=== PATIENT | female | born 1945 | race Caucasian/White ===

== ENCOUNTER 2017-02-02 06:15 | Day surgery (SDC) | payer MEDICARE ==
[2017-01-28 14:47] VITALS: BMI 39.4
[~2017-02-02 06:15] MED LIST: ALPRAZolam 0.25 MG TAB PO PRN; ALPRAZolam 0.5 MG TAB PO PRN; ASPIRIN 325 MG TAB PO STA; ATORVASTATIN 80 MG TAB PO STA; NITROGLYCERIN SL TABS 0.4 MG TAB SUBLINGUAL PRN; SODIUM CHLORIDE 0.9% 1,000 ML in EMPTY BAG 1 BAG IV ONE
[2017-02-02] MEDS ORDERED: IV FLUID CONTINUATION 950 ML IV ONE (07:17)
[2017-02-02 07:19] VITALS: PULSE 60; TEMP 97.8
[2017-02-02] MEDS ORDERED: LIDOCAINE 2% INJ 20 MG/ML (20 ML MDV) ONE (07:31)
[2017-02-02] MEDS ORDERED: MIDAZOLAM 2 MG/2 ML VIAL ONE (07:32)
[2017-02-02] MEDS ORDERED: diphenhydrAMINE 50 MG/ML 1 ML VIAL ONE (07:32)
[2017-02-02] MEDS ORDERED: VERAPAMIL 2.5 MG/ML 2 ML AMP ONE (07:32)
[2017-02-02 07:33] LABS: Glucose,Whole Blood 129 mg/dL (75-99)
[2017-02-02] MEDS ORDERED: HEPARIN SODIUM 1,000 UNIT/ML VIAL ONE (07:39)
[2017-02-02] MEDS ORDERED: diphenhydrAMINE 50 MG/ML 1 ML VIAL IVP ONE (07:41)
[2017-02-02] MEDS ORDERED: MIDAZOLAM 2 MG/2 ML VIAL IV ONE (07:43)
[2017-02-02] MEDS ORDERED: LIDOCAINE 2% INJ 20 MG/ML SQ ONE (07:47)
[2017-02-02] MEDS: VERAPAMIL SYRINGE (5 MG/10 ML) INTRAARTER ONE ×2 (07:51→08:04)
[2017-02-02] MEDS ORDERED: IOHEXOL 350 MG/ML 125ML BOTTLE INJ ONE (08:04)
[2017-02-02] MEDS ORDERED: RX INFO: IV CONTRAST WAS GIVEN 1 EACH MISC MISCELLANE PRN (08:09)
[2017-02-02] MEDS ORDERED: SODIUM CHLORIDE 0.9% 1,000 ML IV SCH (08:15)
[2017-02-02 08:35] LABS: Glucose,Whole Blood 128 mg/dL (75-99)
--- NOTE | 2017-02-02 10:41 | CC ---
DATE OF SERVICE: 02/02/2017. Performing physician: Hernán Dubon car rental clerk. PROCEDURE PERFORMED: 1. Selective right and left coronary angiogram. 2. Left heart catheterization. INDICATION: This is a pleasant 71-year-old female patient who is known to have coronary artery disease and prior stenting of the diagonal branch of the LAD was experiencing symptoms of angina. She was brought today to undergo a heart catheterization. Approach: Right radial artery. COMPLICATIONS: None. Level of sedation: Moderate with a sedation length of 20 minutes. PROCEDURE DESCRIPTION: After obtaining informed consent, the patient was brought to the cardiac engineer geophysical laboratory. Right radial artery was cannulated using micropuncture technique. The micropuncture wire passed easily, then I placed 6 Fijian sheath in the right radial artery. Subsequently, I gave the patient 2 mg of Verapamil IA and 3000 units of heparin IV. After that, I did selective right and left coronary angiogram using JR4 and JL 3.5 catheters. Left heart catheterization was performed using JR4 catheter which flipped into the left ventricle. I did pull back after that. The procedure was completed without any complication. SELECTIVE CORONARY ANGIOGRAM: 1. The right coronary artery is a large-caliber vessel and it is a dominant vessel. The right coronary artery is 100% occluded in the midportion on short segment and fills by collateral from the left coronary system. 2. The left main is angiographically normal. It bifurcates into the left circumflex and left anterior descending artery. 3. The left circumflex is a large-caliber vessel. It is a nondominant vessel. The proximal circumflex is angiographically normal and gives rises into the first and second diagonal branches; both are angiographically normally. The mid circumflex is normal and the circ distally is normal as well. 4. The left anterior descending artery: Proximal LAD appeared to be angiographically normal and gives rise into a large diagonal branch, which is stented, and the stent is patent. The mid LAD is angiographically normal. The LAD distally appeared to be normal, but tortuous. HEMODYNAMICS: The left ventricular end-diastolic pressure was 12 mmHg and no gradient was identified across the aortic valve. CONCLUSION: 1. Chronic total occlusion of the right coronary artery on short segment. 2. Normal left circumflex coronary artery. 3. Patent stent in the diagonal branch of the LAD. 4. Normal left anterior descending artery. POSTPROCEDURE MANAGEMENT: I will schedule the patient to have a stress test as an outpatient. If she has a moderate to large-caliber ischemia in the inferior wall, I will consider proceeding PCI of the RCA and try to go through that ( ).
[2017-02-02 11:22] VITALS: RESP 18
[2017-02-02 12:44] LABS: Glucose,Whole Blood 110 mg/dL (75-99)
[2017-02-02 13:33] VITALS: BP 118/62
== END 2017-02-02 13:30 | disposition home or self-care (01) ==
LOC: CATHCVL 06:15
PROVIDERS: ATTEND Internal Medicine Interventional Cardiology
DX: I25.110 Atherosclerotic heart disease of native coronary artery with unstable angina pectoris (principal); I25.82 Chronic total occlusion of coronary artery; Z95.5 Presence of coronary angioplasty implant and graft; E78.5 Hyperlipidemia, unspecified; I10 Essential (primary) hypertension; E78.00 Pure hypercholesterolemia, unspecified; E11.9 Type 2 diabetes mellitus without complications; Z79.84 Long term (current) use of oral hypoglycemic drugs; Z79.02 Long term (current) use of antithrombotics/antiplatelets; Z79.82 Long term (current) use of aspirin; Z79.899 Other long term (current) drug therapy; Z87.891 Personal history of nicotine dependence
CPT/HCPCS: 93458; 99152; C1894; J2001; J2250; J1200; J1644; Q9967

== ENCOUNTER → 2017-02-08 | Outpatient (CLI) | payer MEDICARE ==
--- NOTE | 2017-02-08 14:13 | US ---
EXAMINATION TYPE: US thyroid st tissue head/neck DATE OF EXAM: 02/08/2017 COMPARISON: NONE CLINICAL HISTORY: E0.1 thyroid nodule. GLAND SIZE: *Large thick neck, thyroid situated inferior. Right Lobe: 4.0 x 1.9 x 1.5 cm Overall Parenchyma: grossly heterogenous Left Lobe: 4.1 x 1.9 x 1.2 cm Overall Parenchyma: grosslyheterogeneous Isthmus Thickness: 0.4 cm NODULES RIGHT: # of nodules measured on right: 0 LEFT: # of nodules measured on left: 0 ISTHMUS: # of nodules measured in the isthmus: 0 Bilateral neck scanned, no evidence of lymphadenopathy. Thyroid gland is markedly heterogeneous in appearance and normal in size, no worrisome focal solid or cystic nodules are identified IMPRESSION: Thyroid gland is normal in size but markedly heterogeneous in appearance, no discrete suspicious grea ter than 1 cm solid or cystic nodules are identified.
== END | disposition home or self-care (01) ==
LOC: RADUSWWP 13:19
PROVIDERS: ATTEND Surgery
DX: E04.1 Nontoxic single thyroid nodule (principal)
CPT/HCPCS: 76536

== ENCOUNTER → 2017-02-12 | Outpatient (CLI) | payer MEDICARE | END | disposition home or self-care (01) | LOC: LABWHC1 09:07 | PROVIDERS: ATTEND Surgery | DX: E04.1 Nontoxic single thyroid nodule (principal) | CPT/HCPCS: 36415; 84439; 84443 ==

== ENCOUNTER 2020-06-04 14:09 | Observation (INO) | payer MEDICARE ==
--- NOTE | 2020-06-04 14:15 | ED ---
Chest Pain HPI - General Stated Complaint: Chest Pain Time Seen by Provider: 06/04/20 14:09 Source: patient, RN notes reviewed - History of Present Illness Initial Comments: This is a 75-year-old female with a family history of heart disease but no personal heart disease history she has of a history of hypertension and hypothyroidism type 2 diabetes who presents with complaints of chest pain it's been intermittent over last couple days with associated shortness of breath he states when she has a pressure [id number] in severity lasting about 20 minutes associated with shortness of breath. She's had no palpitations but was found in her doctor's office today to have A. fib blood per paramedics it appears the PACs and PVCs. Currently is pain-free she took 2 aspirins this morning. No current symptoms MD Complaint: chest pain, other - Related Data Home Medications Medication Instructions Recorded Confirmed Fish Oil/Fat No.8/Hrb Comb.137 1,200 mg PO DAILY 02/01/14 06/04/20 [Barling 3-6-9 1,200 mg Softgel] Lisinopril-Hctz 20-12.5 mg 1 tab PO BID 02/01/14 06/04/20 [Zestoretic 20-12.5] Omeprazole [PriLOSEC] 20 mg PO DAILY 02/01/14 06/04/20 gemfibroziL [Lopid] 600 mg PO BID 02/01/14 06/04/20 Levothyroxine Sodium [Synthroid] 150 mcg PO DAILY 02/02/14 06/04/20 Glimepiride [Amaryl] 2 mg PO AC-BRKFST 06/04/20 06/04/20 Metoprolol Tartrate [Lopressor] 50 mg PO DAILY 06/04/20 06/04/20 Semaglutide [Ozempic] 0.25 mg SQ MO 06/04/20 06/04/20 metFORMIN HCL 1,000 mg PO BID 06/04/20 06/04/20 Previous Rx's Medication Instructions Recorded Clopidogrel [Plavix] 75 mg PO DAILY #30 tab 02/03/14 Nitroglycerin Sl Tabs [Nitrostat] 0.4 mg SUBLINGUAL Q5M PRN #25 tab 02/03/14 Allergies Allergy/AdvReac Type Severity Reaction Status Date / Time surgical tape AdvReac Unknown Uncoded 06/04/20 15:03 Review of Systems ROS Statement: Those systems with pertinent positive or pertinent negative responses have been documented in the HPI. ROS Other: All systems not noted in ROS Statement are negative. EKG Findings - EKG Results: EKG: interpreted by KARYN, sinus rhythm (Sinus rhythm with PACs rate 79. Interval was 70 QRS duration 88 QT since QTC 392/[address]-T wave changes) Past Medical History Past Medical History: Chest Pain / Angina, CVA/TIA, Diabetes Mellitus, GERD/Reflux, Hyperlipidemia, Hypertension, Osteoarthritis (OA), Thyroid Disorder Additional Past Medical History / Comment(s): TIA 20 yrs. ago-no residual effects, c/o chest pressure, SOB w/exertion History of Any Multi-Drug Resistant Organisms: None Reported Past Surgical History: Breast Surgery, Heart Catheterization With Stent, Orthopedic Surgery Additional Past Surgical History / Comment(s): LT SHOULDER, RT BREAST BENIGN LUMP REMOVED Past Anesthesia/Blood Transfusion Reactions: No Reported Reaction Date of Last Stent Placement:: 2013 Past Psychological History: Anxiety Past Alcohol Use History: Occasional Additional Past Alcohol Use History / Comment(s): quit smoking 22 yrs. smoked 1ppd for 30 yrs. Past Drug Use History: None Reported - Past Family History Father Family Medical History: Deep Vein Thrombosis (DVT) General Exam - General Exam Comments Initial Comments: This is a well-developed well-nourished awake alert oriented 3 female General appearance: alert, in no apparent distress Head exam: Present: atraumatic, normocephalic, normal inspection Eye exam: Present: normal appearance, PERRL, EOMI. Absent: scleral icterus, conjunctival injection, periorbital swelling ENT exam: Present: normal exam, mucous membranes moist Neck exam: Present: normal inspection. Absent: tenderness, meningismus, lymph adenopathy Respiratory exam: Present: normal lung sounds bilaterally. Absent: respiratory distress, wheezes, rales, rhonchi, stridor Cardiovascular Exam: Present: regular rate, normal rhythm, normal heart sounds. Absent: systolic murmur, diastolic murmur, rubs, gallop, clicks GI/Abdominal exam: Present: soft, normal bowel sounds. Absent: distended, tenderness, guarding, rebound, rigid Extremities exam: Present: normal inspection, full ROM, normal capillary refill. Absent: tenderness, pedal edema, joint swelling, calf tenderness Back exam: Present: normal inspection Neurological exam: Present: alert, oriented X3, CN II-XII intact Psychiatric exam: Present: normal affect, normal mood Skin exam: Present: warm, dry, intact, normal color. Absent: rash Course Vital Signs 06/04/20 06/04/20 06/04/20 14:25 15:05 16:00 Temperature 98.2 F Pulse Rate 81 78 77 Respiratory 18 16 18 Rate Blood Pressure 173/74 138/81 137/53 O2 Sat by Pulse 99 95 96 Oximetry - Reevaluation(s) Reevaluation #1: 06/04/20 16:44 Patient did have elevated d-dimer. CAT scan of the chest was done no evidence of pulmonary emboli. She did note that there is a family history of emboli in the family /relatives Chest Pain MDM - MDM Imaging reviewed no evidence of acute findings. I did discuss the case with the patient and her and with Dr. Sutherland who did see the patient in emergency department patient be admitted for evaluation of chest pain cardiology will be consulted Critical Care Time Critical Care Time: Yes Total Critical Care Time: 35 Critical Care Time: Critical care time includes initial presentation with history physical labs x- rays multiple re-evaluations patient discussion the patient family regarding findings discussion with the admitting physician documentation the above Disposition Clinical Impression: Chest pain, Unstable angina pectoris Disposition: ADMITTED IP TO THIS [facility] Condition: Fair Referrals: Nimisha House MD [Primary Care Provider] - 1-2 days
[2020-06-04 14:50] LABS: Basophils # (A) 0.1 k/uL (0-0.2); Basophils % (A) 1 %; Eosinophils # (A) 0.7 k/uL (0-0.7); Eosinophils % (A) 8 %; HCT 41.9 % (34.0-46.0); HGB 13.8 gm/dL (11.4-16.0); Lymphocytes # (A) 2.1 k/uL (1.0-4.8); Lymphocytes % (A) 25 %; MCH 29.5 pg (25.0-35.0); MCV 89.4 fL (80.0-100.0); Mean Platelet Volume 7.9; Monocytes # (A) 0.6 k/uL (0-1.0); Monocytes % (A) 7 %; Neutrophils # (A) 4.6 k/uL (1.3-7.7); Neutrophils % (A) 55 %; Platelet Count 346 k/uL (150-450); RBC 4.68 m/uL (3.80-5.40); RDW 12.2 % (11.5-15.5); WBC 8.3 k/uL (3.8-10.6)
[2020-06-04 15:08] LABS: ALT 18 U/L (4-34); AST 22 U/L (14-36); African American GFR (CKD) >90 (>60 ml/min/1.73 sqM); Albumin 4.4 g/dL (3.5-5.0); Alkaline Phosphatase 71 U/L (38-126); Anion Gap 11 mmol/L; Blood Urea Nitrogen 25 mg/dL (7-17); Carbon Dioxide 26 mmol/L (22-30); Chloride 101 mmol/L (98-107); Creatine Kinase 30 U/L (30-135); Glucose 160 mg/dL (74-99); Magnesium 1.6 mg/dL (1.6-2.3); Non-African American GFR(CKD) 90 (>60 ml/min/1.73 sqM); Potassium 4.2 mmol/L (3.5-5.1); Sodium 138 mmol/L (137-145); Total Bilirubin 0.3 mg/dL (0.2-1.3); Total Protein 7.4 g/dL (6.3-8.2)
[2020-06-04 15:11] LABS: INR 0.9 (<1.2); Prothrombin Time 9.4 sec (9.0-12.0)
[2020-06-04 15:19] LABS: D-Dimer 2.08 mg/L FEU (<0.60)
[2020-06-04 15:20] LABS: Partial Thromboplastin Time 21.5 sec (22.0-30.0)
--- NOTE | 2020-06-04 15:39 | XR ---
EXAMINATION TYPE: XR chest 2V DATE OF EXAM: 06/04/2020 CLINICAL HISTORY: Chest pain TECHNIQUE: Frontal and lateral views of the chest are obtained. COMPARISON: Chest radiograph 04/14/2017 FINDINGS: The cardiomediastinal silhouette is within normal limits for size. Pulmonary vasculature i s normal. There is no focal air space opacity, pleural effusion, or pneumothorax seen. Degenerative c hanges of the spine. IMPRESSION: No acute cardiopulmonary process.
--- NOTE | 2020-06-04 16:12 | CT ---
EXAMINATION TYPE: CT angio chest DATE OF EXAM: 06/04/2020 3:57 PM COMPARISON: 06/04/2020 chest radiograph HISTORY: Chest heaviness. CT DLP: 650.1 mGycm Automated exposure control for dose reduction was used. CONTRAST: CTA scan of the thorax is performed with IV Contrast, patient injected with 100 mL of Isovue 370, pul monary embolism protocol. MIP images are created and reviewed. FINDINGS: LUNGS: The lungs are grossly clear, there is no concerning parenchymal mass or nodule identified. T here is no pleural effusion or pneumothorax seen. The tracheobronchial tree is patent. MEDIASTINUM: There is satisfactory enhancement of the pulmonary artery and its branches, there is no CT evidence for pulmonary embolism. Prominent 1.0 cm left mediastinal lymph node. No hilar or axillar y lymphadenopathy. Cardiac size normal. No pericardial effusion is seen. No thoracic aortic aneurysm . OTHER: Degenerative changes of the spine. Normal adrenal glands. IMPRESSION: 1. NO PULMONARY EMBOLISM. 2. NO THORACIC AORTIC ANEURYSM.
[2020-06-04] MEDS ORDERED: HEPARIN SODIUM,PORCINE 5,000 UNIT/ML 1 ML VIAL IV ONE (16:46)
[2020-06-04] MEDS ORDERED: NITROGLYCERIN SL TABS 0.4 MG TAB SUBLINGUAL PRN (16:46)
[2020-06-04] MEDS: SODIUM CHLORIDE 0.9% 1,000 ML IV SCH (17:58)
[2020-06-04] MEDS: HEPARIN SOD,PORK IN 0.45% NACL 25,000 UNIT in 0.45% NACL 1 250ML.BAG IV SCH (17:58)
[2020-06-04] MEDS: NITROGLYCERIN OINT 1 INCH/GM PACKET TOPICAL SCH (19:15)
[2020-06-04] MEDS ORDERED: HYDROmorphone 0.5 MG/0.5 ML SYRINGE IVP PRN (19:22)
[2020-06-04] MEDS: PANTOPRAZOLE 40 MG/10 ML VIAL IVP SCH (19:51)
--- NOTE | 2020-06-04 20:24 | HP ---
HISTORY AND PHYSICAL DATE OF SERVICE: 06/04/2020 CHIEF COMPLAINT: Chest pain. HISTORY OF PRESENT ILLNESS: This 75-year-old woman with a past medical history of multiple medical problems, including chest pain, history of CVA, TIA, diabetes mellitus, GERD, hypertension, hyperlipidemia, DJD, hypothyroidism, history of TIA, being followed by Dr. House in the outpatient setting, was complaining of severe chest pain in the anterior part of the chest today. The patient woke up from sleep this morning. The pain lasted about 15 minutes, moderate intensity, which was a pressure type of pain felt in the anterior part. The pain was intermittent over the last couple of days. Some shortness of breath. The patient came to [facility] and was admitted for further evaluation and treatment. The patient was found to have atrial fibrillation in the doctor's office with some PACs and PVCs also. The evaluation in the ER showed D-dimer was elevated to 2.08, but a CT angio did not show any evidence of aortic aneurysm or an acute pulmonary embolism. Patient was admitted for further evaluation. Glucose was 160. Initial troponins are negative. NT-Pro-BNP is only 80. There is no history of any fever, rigor or chills. No history of headache, loss of consciousness, seizures at this time. PAST MEDICAL HISTORY: History of CVA, TIA, diabetes mellitus, GERD, hypertension, hyperlipidemia, history of DJD, hypothyroidism, TIA. HOME MEDICATIONS: 1. Metformin 1000 mg p.o. b.i.d. 2. Lopid 600 mg p.o. b.i.d. 3. Ozempic 0.25 mg. 4. Prilosec. 5. Nitroglycerin. 6. Metoprolol. 7. Lisinopril/hydrochlorothiazide. 8. Synthroid. 9. Amaryl. 10.Fish oil. 11.Plavix. ALLERGIES: SURGICAL TAPE. FAMILY HISTORY: History of DVT in the family. SOCIAL HISTORY: Previous history of smoking. No history of alcohol intake. REVIEW OF SYSTEMS: ENT: No diminished hearing. No diminished vision. CARDIOVASCULAR SYSTEM: As mentioned earlier. RESPIRATORY SYSTEM: As mentioned earlier. GI: As mentioned earlier. : No dysuria or retention. NERVOUS SYSTEM: No numbness, weakness. ALLERGY/IMMUNOLOGY: No asthma, hayfever. MUSCULOSKELETAL: As mentioned earlier. HEMATOLOGY/ONCOLOGY: No history of anemia. ENDOCRINE: Hypothyroidism. CONSTITUTIONAL: As mentioned earlier. DERMATOLOGY: Negative. RHEUMATOLOGY: Negative. PSYCHIATRY: As mentioned earlier. PHYSICAL EXAMINATION: Patient alert and oriented x3. Pulse is 79, blood pressure 127/60, respiration 18, temperature normal, pulse ox 98% on room air. HEENT: Conjunctivae normal. Oral mucosa moist. NECK: No jugular venous distention. No carotid bruit. No lymph node enlargement. CARDIOVASCULAR SYSTEM: S1, S2 muffled. No S3. No S4. RESPIRATORY SYSTEM: Breath sounds diminished at the bases. No rhonchi. No crackles. ABDOMEN: Soft, obese, non-tender. No mass palpable. LEGS: No edema. No swelling. NERVOUS SYSTEM: Higher functions as mentioned earlier. Moves all 4 limbs. No focal motor or sensory deficit. LYMPHATICS: No lymph node palpable in neck, axillae or groin. SKIN: No ulcer, rash, bleeding. JOINTS: No active deforming arthropathy. LABS/IMAGING: CBC within normal limits. D-dimer is 2.08. Sodium 138, potassium 4.2. BUN is 25, glucose 160. Troponin less than 0.012. EKG shows normal sinus rhythm with some PACs. Chest x-ray, which was personally reviewed by me, showed no cardiorespiratory illness. CTA, which was again personally reviewed, showed no evidence of any pulmonary embolism. ASSESSMENT: 1. Chest pain for evaluation; possible unstable angina. 2. Elevated D-dimer of undetermined etiology. 3. Rule out paroxysmal atrial fibrillation. 4. Diabetes mellitus, type 2. 5. PACs and PVCs. 6. History of cerebrovascular accident, transient ischemic attack. 7. Gastroesophageal reflux disease. 8. Hypertension. 9. Hyperlipidemia. 10.Degenerative joint disease. 11.History of hypothyroidism. 12.History of coronary artery disease, stent. 13.History of right breast benign lump. 14.Anxiety. 15.Remote history of nicotine dependence. 16.Obesity with body mass index of 38.6. 17.FULL CODE. RECOMMENDATIONS AND DISCUSSION: In this 75-year-old woman with a past history of multiple medical problems, at this time I recommend continuing the current medications, continue symptomatic treatment. The initial EKG did not show an acute abnormality. I would obtain a cardiology consultation. Otherwise, acute coronary syndrome protocol. I would give Protonix. Resume the home medication. Monitor blood sugars closely. Prognosis guarded because of multiple complex medical issues. Further recommendations to follow. A copy of this dictation is being forwarded to Dr. House, who is the primary physician. I would also recommend COVID-19 testing as well as some septic workup. MMODL / IJN: [id number] /
[2020-06-04 20:34] LABS: Appearance,Urine Clear (Clear); Bilirubin,Urine Negative (Negative); Blood,Urine Negative (Negative); Color,Urine Yellow; Glucose,Urine (UA) Negative (Negative); Ketones,Urine Negative (Negative); Leukocyte Esterase,Urine Small (Negative); Mucus,Urine Rare /hpf; Nitrite,Urine Negative (Negative); PH, Urine 6.5 (5.0-8.0); Protein,Urine Negative (Negative); RBC,Urine 1 /hpf (0-5); Specific Gravity,Urine 1.017 (1.001-1.035); Squamous Epithelial Cell,Urine 1 /hpf (0-4); Urobilinogen,Urine <2.0 mg/dL (<2.0); WBC,Urine 3 /hpf (0-5)
[2020-06-04] MEDS: metFORMIN 500 MG TAB PO SCH (21:01)
[2020-06-04 21:02] LABS: Glucose,Whole Blood 128 mg/dL (75-99)
[2020-06-04] MEDS: FENOFIBRATE 160 MG TAB PO SCH (21:10)
[2020-06-04] MEDS: LISINOPRIL-HCTZ 20-12.5 MG 1 EACH TAB PO SCH (21:27)
[2020-06-04] MEDS: INSULIN ASPART (NovoLOG) 100 UNIT/ML VIAL SQ SCH (21:28)
[2020-06-04 22:47] LABS: C Reactive Protein 5.4 mg/L (<10.0)
[2020-06-05] MEDS: NITROGLYCERIN OINT 1 INCH/GM PACKET TOPICAL SCH ×4 (00:39→16:50)
[2020-06-05] MEDS: LEVOTHYROXINE 75 MCG TAB PO SCH (06:14)
[2020-06-05] MEDS: INSULIN ASPART (NovoLOG) 100 UNIT/ML VIAL SQ SCH ×4 (06:14→20:43)
[2020-06-05] MEDS: GLIMEPIRIDE 2 MG TAB PO SCH (06:14)
[2020-06-05 06:43] LABS: Glucose,Whole Blood 152 mg/dL (75-99)
[2020-06-05] MEDS ORDERED: PANTOPRAZOLE 40 MG TABLET PO SCH (07:30)
[2020-06-05] MEDS: metFORMIN 500 MG TAB PO SCH (08:05)
[2020-06-05] MEDS: PANTOPRAZOLE 40 MG/10 ML VIAL IVP SCH (08:25)
[2020-06-05] MEDS: LISINOPRIL-HCTZ 20-12.5 MG 1 EACH TAB PO SCH ×2 (08:25→20:05)
[2020-06-05] MEDS: METOPROLOL TARTRATE 50 MG TAB PO SCH (08:25)
[2020-06-05] MEDS: CLOPIDOGREL 75 MG TAB PO SCH (08:25)
[2020-06-05] MEDS ORDERED: ASPIRIN 325 MG TAB PO SCH (09:00)
[2020-06-05] MEDS ORDERED: [UNRECOGNIZED DRUG - REMARK] PO SCH (09:00)
[2020-06-05 09:48] LABS: African American GFR (CKD) >90 (>60 ml/min/1.73 sqM); Anion Gap 10 mmol/L; Basophils # (A) 0.1 k/uL (0-0.2); Basophils % (A) 1 %; Blood Urea Nitrogen 20 mg/dL (7-17); Calcium 9.6 mg/dL (8.4-10.2); Carbon Dioxide 27 mmol/L (22-30); Chloride 100 mmol/L (98-107); Cholesterol 198 mg/dL (<200); Eosinophils # (A) 0.6 k/uL (0-0.7); Eosinophils % (A) 8 %; Glucose 157 mg/dL (74-99); HCT 41.8 % (34.0-46.0); HDL Cholesterol 28 mg/dL (40-60); HGB 13.7 gm/dL (11.4-16.0); Lymphocytes # (A) 2.1 k/uL (1.0-4.8); Lymphocytes % (A) 29 %; MCH 29.7 pg (25.0-35.0); MCHC 32.8 g/dL (31.0-37.0); MCV 90.5 fL (80.0-100.0); Mean Platelet Volume 8.2; Monocytes # (A) 0.5 k/uL (0-1.0); Monocytes % (A) 7 %; Neutrophils # (A) 3.7 k/uL (1.3-7.7); Neutrophils % (A) 52 %; Non-African American GFR(CKD) 88 (>60 ml/min/1.73 sqM); Platelet Count 328 k/uL (150-450); Potassium 4.2 mmol/L (3.5-5.1); RBC 4.62 m/uL (3.80-5.40); RDW 12.4 % (11.5-15.5); Sodium 137 mmol/L (137-145); Triglycerides 425 mg/dL (<150); WBC 7.1 k/uL (3.8-10.6)
[2020-06-05] MEDS ORDERED: NITROGLYCERIN SL TABS 0.4 MG TAB SUBLINGUAL PRN (10:33)
[2020-06-05] MEDS ORDERED: ALPRAZolam 0.25 MG TAB PO PRN (10:33)
[2020-06-05] MEDS ORDERED: ASPIRIN 325 MG TAB PO STA (10:33)
[2020-06-05] MEDS ORDERED: ATORVASTATIN 80 MG TAB PO STA (10:33)
[2020-06-05] MEDS ORDERED: SODIUM CHLORIDE 0.9% 1,000 ML in EMPTY BAG 1 BAG IV ONE (10:33)
[2020-06-05] MEDS ORDERED: ALPRAZolam 0.5 MG TAB PO PRN (10:33)
[2020-06-05 10:52] LABS: Glucose,Whole Blood 132 mg/dL (75-99)
[2020-06-05] MEDS ORDERED: LIDOCAINE 1% INJ 10MG/ML (20 ML MDV) ONE (10:59)
[2020-06-05] MEDS ORDERED: IV FLUID CONTINUATION 1,000 ML IV ONE ×2 (11:04)
[2020-06-05] MEDS ORDERED: fentaNYL (PF) 50 MCG/ML 2 ML AMP ONE (11:11)
[2020-06-05] MEDS ORDERED: VERAPAMIL 2.5 MG/ML 2 ML AMP ONE (11:11)
[2020-06-05 11:12] LABS: D-Dimer 0.71 mg/L FEU (<0.60); Partial Thromboplastin Time 35.4 sec (22.0-30.0)
[2020-06-05] MEDS ORDERED: MIDAZOLAM 2 MG/2 ML VIAL IVP ONE (11:25)
[2020-06-05] MEDS ORDERED: fentaNYL (PF) 50 MCG/ML 2 ML AMP IVP ONE (11:26)
[2020-06-05] MEDS ORDERED: LIDOCAINE 1% INJ 10MG/ML (20 ML MDV) SQ ONE (11:29)
[2020-06-05] MEDS ORDERED: HEPARIN SODIUM 1,000 UN/ML (10ML VL) ONE (11:31)
[2020-06-05] MEDS: VERAPAMIL SYRINGE (5 MG/10 ML) INTRAARTER ONE ×2 (11:32→11:45)
[2020-06-05] MEDS ORDERED: HEPARIN SODIUM 1,000 UN/ML (10ML VL) IV ONE (11:34)
[2020-06-05] MEDS ORDERED: IOPAMIDOL-370 125ML BTL INJ ONE ×2 (11:46)
[2020-06-05] MEDS ORDERED: RX INFO: IV CONTRAST WAS GIVEN 1 EACH MISC MISCELLANE PRN (11:52)
--- NOTE | 2020-06-05 12:01 | P.CRDCN ---
History of Present Illness Consult date: 06/05/20 History of present illness: CHIEF COMPLAINT: Chest pain HISTORY OF PRESENT ILLNESS: This is a 75-year old female with a past medical history significant for coronary artery disease, hyperlipidemia, hypertension, and diabetes mellitus. Patient follows in the office with Dr. Dubon, but it has been over 3 years since she has followed up at the office. We have been asked to see the patient in consultation for chest pain. Patient states she woke up two nights ago with chest discomfort. She describes it as someone was standing on her chest. She denied radiation to arm, jaw, or neck. She reports having some shortness of breath as the day went on. She took two aspirin at home. She called Dr. Dubon's office but was told she would have to be treated as a new patient since it had been a long time since she was seen at the office so she decided to go to her primary care physician's office instead. She states they did an EKG a nd recommended she come to the hospital for further evaluation. Patient reports she had another episode of chest discomfort last night, but she currently denies chest pain or pressure. She denies SOB this morning. There was some discussion of possible atrial fibrillation on her EKG. However this appears to be sinus rhythm with PACs and PVCs. In reviewing telemetry overnight there was no noted episodes of atrial fibrillation. patient did undergo a heart cath in January 2017 revealing a patent stent to the LAD and chronic total occlusion of the RCA. DIAGNOSTICS: EKG reveals sinus mechanism with PACs and PVCs Chest xray negative for acute process CT: Negative for pulmonary emboli Laboratory data: WBC 7.1. Hemoglobin 13.7. Platelet count 328. Sodium 137. Potassium 4.2. BUN 20. creatinine 0.65. troponin negative 3 Current home cardiac medications include lopressor 50 mg daily, lisinopril-HCTZ 20-12.5mg, and Plavix 75 mg daily REVIEW OF SYSTEMS: At the time of my exam: CONSTITUTIONAL: Denies fever or chills. HEENT: Denies blurred vision, vision changes, or eye pain. Denies hemoptysis CARDIOVASCULAR: Denies chest pain, orthopnea, PND or palpitations RESPIRATORY: No shortness of breath. GASTROINTESTINAL: Denies abdominal pain. Denies nausea or vomiting. HEMATOLOGIC: Denies bleeding disorders. GENITOURINARY: Denies any blood in urine. SKIN: Denies pruitis. Denies rash. PHYSICAL EXAM: VITAL SIGNS: Reviewed. GENERAL: Well-developed in no acute distress. HEENT: Head is normocephalic. Pupils are equal, round. Sclerae anicteric. Mucous membranes of the mouth are moist. Neck supple. No JVD or thyromegaly LUNGS: Respirations even and unlabored. Lungs essentially clear to auscultation bilaterally. HEART: Regular rate and rhythm. S1 and S2 heard. ABDOMEN: Soft. Nondistended. Nontender. EXTREMITIES: Normal range of motion. No clubbing or cyanosis. Peripheral pulses intact. No lower extremity edema NEUROLOGIC: Awake and alert. Oriented x 3. ASSESSMENT: Chest pain Coronary artery disease with previous PCI to LAD and chronic total occlusion of RCA Hypertension Hyperlipidemia Hypertriglyceridemia Diabetes mellitus, type II Obesity: BMI 38.6 PLAN: Resume home cardiac medications Add aspirin 81mg daily Obtain 2D echo to assess cardiac structure and function Patient to undergo cardiac cath with Dr. Vargas today Nurse practitioner note has been reviewed by physician. Signing provider agrees with the documented findings, assessment, and plan of care. Past Medical History Past Medical History: Chest Pain / Angina, CVA/TIA, Diabetes Mellitus, GERD/Reflux, Hyperlipidemia, Hypertension, Osteoarthritis (OA), Thyroid Disorder Additional Past Medical History / Comment(s): TIA 20 yrs. ago-no residual effects, c/o chest pressure, SOB w/exertion History of Any Multi-Drug Resistant Organisms: None Reported Past Surgical History: Breast Surgery, Heart Catheterization With Stent, Orthopedic Surgery Additional Past Surgical History / Comment(s): LT SHOULDER, RT BREAST BENIGN LUMP REMOVED Past Anesthesia/Blood Transfusion Reactions: No Reported Reaction Date of Last Stent Placement:: 2013 Past Psychological History: Anxiety Smoking Status: Former smoker Past Alcohol Use History: Occasional Additional Past Alcohol Use History / Comment(s): quit smoking 22 yrs. smoked 1ppd for 30 yrs. Past Drug Use History: None Reported - Past Family History Father Family Medical History: Deep Vein Thrombosis (DVT) Medications and Allergies Home Medications Medication Instructions Recorded Confirmed Type Fish Oil/Fat No.8/Hrb Comb.137 1,200 mg PO DAILY 02/01/14 06/04/20 History [[place] 3-6-9 1,200 mg Softgel] Lisinopril-Hctz 20-12.5 mg 1 tab PO BID 02/01/14 06/04/20 History [Zestoretic 20-12.5] Omeprazole [PriLOSEC] 20 mg PO DAILY 02/01/14 06/04/20 History gemfibroziL [Lopid] 600 mg PO BID 02/01/14 06/04/20 History Levothyroxine Sodium [Synthroid] 150 mcg PO DAILY 02/02/14 06/04/20 History Clopidogrel [Plavix] 75 mg PO DAILY #30 tab 02/03/14 06/04/20 Rx Nitroglycerin Sl Tabs [Nitrostat] 0.4 mg SUBLINGUAL Q5M PRN #25 tab 02/03/14 06/04/20 Rx Glimepiride [Amaryl] 2 mg PO AC-BRKFST 06/04/20 06/04/20 History Metoprolol Tartrate [Lopressor] 50 mg PO DAILY 06/04/20 06/04/20 History Semaglutide [Ozempic] 0.25 mg SQ MO 06/04/20 06/04/20 History metFORMIN HCL 1,000 mg PO BID 06/04/20 06/04/20 History Allergies Allergy/AdvReac Type Severity Reaction Status Date / Time surgical tape AdvReac Unknown Uncoded 06/04/20 15:03 Physical Exam Vitals: Vital Signs Temp Pulse Pulse Resp BP BP Pulse Ox 06/05/20 08:13 98.5 F 65 18 144/76 96 06/05/20 03:00 97.9 F 70 18 126/60 98 06/04/20 21:46 97.4 F L 76 18 183/75 95 06/04/20 21:14 77 18 145/63 95 06/04/20 19:59 74 16 139/66 97 06/04/20 18:00 79 18 127/68 98 06/04/20 17:00 80 14 134/83 96 06/04/20 16:30 74 18 149/72 96 06/04/20 16:00 77 18 137/53 96 06/04/20 15:05 78 16 138/81 95 06/04/20 14:25 98.2 F 81 18 173/74 99 Intake and Output 06/04/20 06/05/20 06/05/20 22:59 06:59 14:59 Intake Total 196.847 Balance 196.847 Intake: Intake, IV Titration 196.847 Amount Heparin Sod,Pork in 0.45% 66.847 NaCl 25,000 unit In 0.45 % NaCl 1 250ml.bag @ 9.8 UNITS/KG/HR 10.002 mls/hr IV .Q24H [facility] Rx#: [id number] Sodium Chloride 0.9% 1, 130 000 ml @ 20 mls/hr IV . Q24H HA Rx#:[id number] Other: Voiding Method Toilet Toilet # Voids 3 Weight 102.058 kg Results 06/05/20 07:24 06/05/20 07:24 Cardiac Enzymes 06/04/20 06/04/20 06/04/20 Range/Units 14:42 14:42 18:13 AST 22 (14-36) U/L Lactate Dehydrogenase (313-618) U/L Troponin I <0.012 <0.012 (0.000-0.034) ng/mL 06/04/20 06/04/20 Range/Units 20:51 20:51 AST (14-36) U/L Lactate Dehydrogenase 346 (313-618) U/L Troponin I <0.012 (0.000-0.034) ng/mL Coagulation 06/04/20 06/04/20 Range/Units 14:42 23:42 PT 9.4 (9.0-12.0) sec APTT 21.5 L 29.5 (22.0-30.0) sec CBC 06/04/20 Range/Units 14:42 WBC 8.3 (3.8-10.6) k/uL RBC 4.68 (3.80-5.40) m/uL Hgb 13.8 (11.4-16.0) gm/dL Hct 41.9 (34.0-46.0) % Plt Count 346 (150-450) k/uL Comprehensive Metabolic Panel 06/04/20 Range/Units 14:42 Sodium 138 (137-145) mmol/L Potassium 4.2 (3.5-5.1) mmol/L Chloride 101 (98-107) mmol/L Carbon Dioxide 26 (22-30) mmol/L BUN 25 H (7-17) mg/dL Creatinine 0.61 (0.52-1.04) mg/dL Glucose 160 H (74-99) mg/dL Calcium 10.0 (8.4-10.2) mg/dL AST 22 (14-36) U/L ALT 18 (4-34) U/L Alkaline Phosphatase 71 (38-126) U/L Total Protein 7.4 (6.3-8.2) g/dL Albumin 4.4 (3.5-5.0) g/dL Current Medications Generic Name Dose Route Start Last Admin Trade Name Freq PRN Reason Stop Dose Admin Aspirin 325 mg 06/05/20 09:00 06/05/20 08:25 Aspirin 325 Mg Tab PO 325 mg DAILY HA Administration Clopidogrel Bisulfate 75 mg 06/05/20 09:00 06/05/20 08:25 Clopidogrel 75 Mg Tab PO 75 mg DAILY HA Administration Fenofibrate 160 mg 06/04/20 21:00 06/04/20 21:10 Fenofibrate 160 Mg Tab PO 160 mg HS HA Administration Glimepiride 2 mg 06/05/20 07:30 06/05/20 06:14 Glimepiride 2 Mg Tab PO Not Given AC-BRKFST HA Lisinopril/HCTZ 1 each 06/04/20 21:00 06/05/20 08:25 Lisinopril-Hctz 20-12.5 Mg 1 Each Tab PO 1 each BID HA Administration Hydromorphone HCl 0.5 mg 06/04/20 19:22 Hydromorphone 0.5 Mg/0.5 Ml Syringe IVP Q4HR PRN Severe Pain Sodium Chloride 1,000 mls @ 20 mls/hr 06/04/20 17:00 06/04/20 17:58 Saline 0.9% IV 20 mls/hr .Q24H HA Administration Heparin Sodium/Sodium Chloride 250 mls @ 10.002 mls/hr 06/04/20 17:00 06/05/20 00:39 25,000 unit/ Sodium Chloride IV 12.8 units/kg/hr .Q24H HA 13.063 mls/hr Titration Protocol 9.8 UNITS/KG/HR Insulin Aspart 0 unit 06/04/20 21:00 06/05/20 06:14 Insulin Aspart (Novolog) 100 Unit/Ml Vial SQ Not Given ACHS HA Protocol Levothyroxine Sodium 150 mcg 06/05/20 06:30 06/05/20 06:14 Levothyroxine 75 Mcg Tab PO Not Given 0630 [facility] Metformin HCl 1,000 mg 06/04/20 21:00 06/05/20 08:05 Metformin 500 Mg Tab PO Not Given BID [facility] Metoprolol Tartrate 50 mg 06/05/20 09:00 06/05/20 08:25 Metoprolol Tartrate 50 Mg Tab PO 50 mg DAILY [facility] Administration Nitroglycerin 0.4 mg 06/04/20 16:46 Nitroglycerin Sl Tabs 0.4 Mg Tab SUBLINGUAL Q5M PRN Chest Pain Nitroglycerin 1 inch 06/04/20 18:00 06/05/20 06:14 Nitroglycerin Oint 1 Inch/Gm Packet TOPICAL Not Given Q6HR [facility] Patient's Own ( 0.25 mg 06/10/20 12:00 Semaglutide [Ozempic SQ ] 0.25 Mg/0.2 Ml Pen MO HA .Injctr) Pantoprazole Sodium 40 mg 06/04/20 19:30 06/05/20 08:25 Pantoprazole 40 Mg/10 Ml Vial IVP 40 mg DAILY [facility] Administration Intake and Output 06/04/20 06/05/20 06/05/20 22:59 06:59 14:59 Intake Total 196.847 Balance 196.847 Intake: Intake, IV Titration 196.847 Amount Heparin Sod,Pork in 0.45% 66.847 NaCl 25,000 unit In 0.45 % NaCl 1 250ml.bag @ 9.8 UNITS/KG/HR 10.002 mls/hr IV .Q24H [facility] Rx#: [id number] Sodium Chloride 0.9% 1, 130 000 ml @ 20 mls/hr IV . Q24H [facility] Rx#:[id number] Other: Voiding Method Toilet Toilet # Voids 3 Weight 102.058 kg 06/04/20 14:42 06/04/20 14:42
--- NOTE | 2020-06-05 12:02 | ECHOF ---
Referral Reason:chest pain MEASUREMENTS -------- HEIGHT: 162.6 cm WEIGHT: 102.1 kg BP: RVIDd: 2.2 cm (< 3.3) IVSd: 1.3 cm (0.6 - 1.1) LVIDd: 4.6 cm (3.9 - 5.3) LVPWd: 1.4 cm (0.6 - 1.1) IVSs: 1.9 cm LVIDs: 3.6 cm LVPWs: 1.7 cm LAESV Index (A-L): 17.67 ml/m Ao Diam: 2.3 cm (2.0 - 3.7) AV Cusp: 1.7 cm (1.5 - 2.6) LA Diam: 3.3 cm (2.7 - 3.8) MV EXCURSION: 12.842 mm (> 18.000) MV EF SLOPE: 73 mm/s (70 - 150) EPSS: 0.6 cm MV E Cabrera: 1.00 m/s MV DecT: 175 ms MV A Cabrera: 0.97 m/s MV E/A Ratio: 1.04 RAP: 5.00 mmHg RVSP: 15.28 mmHg FINDINGS -------- Sinus rhythm. This was a technically adequate study. The left ventricular size is normal. There is mild concentric left ventricular hypertrophy. Overa ll left ventricular systolic function is normal with, an EF between 55 - 60 %. The right ventricle is normal in size. Normal LA size by volume 22+/-6 ml/m2. The right atrial size is normal. There is mild aortic valve sclerosis. The mitral valve is normal. Mild mitral regurgitation is present. The tricuspid valve appears structurally normal. Mild tricuspid regurgitation present. Right vent ricular systolic pressure is normal at < 35 mmHg. There is no pulmonic regurgitation present. The aortic root size is normal. IVC Not well visulized. There is a trivial pericardial effusion present. CONCLUSIONS -------- 1. There is mild concentric left ventricular hypertrophy. 2. Overall left ventricular systolic function is normal with, an EF between 55 - 60 %. 3. Normal LA size by volume 22+/-6 ml/m2. 4. There is mild aortic valve sclerosis. 5. Mild mitral regurgitation is present. 6. Mild tricuspid regurgitation present. 7. There is a trivial pericardial effusion present. BB SHOT PACKER: Jaqueline Davis RDCS
--- NOTE | 2020-06-05 12:03 | P.CARDCATH ---
Date of Procedure: 06/05/20 Preoperative Diagnosis: Unstable angina Postoperative Diagnosis: Stable coronary artery disease Procedure(s) Performed: Left heart catheterization without left ventriculography Description of Procedure: HISTORY: This is a 75-year-old female with history of ischemic or disease and previous stent placement of the diagonal and known total occlusion of the RCA who came to the hospital with complaints of recurrent episodes of chest tightness. Her EKGs did not reveal any acute changes. Cardiac enzymes are negative. Patient was advised to have a cardiac catheterization for definitive diagnosis, Because of typical symptoms and known ischemic heart disease. CONSENT:I have discussed the risks, benefits and alternative therapies for the above-mentioned procedure and for both sedation/analgesia as well as necessary blood product administration, if indicated, as they pertain to this patient. The patient has indicated understanding and acceptance of the risks and procedures discussed. PROCEDURE: Patient was brought to the lab in a fasting state. Patient was given some IV sedation. The right wrist is infiltrated with lidocaine and right radial artery was entered using Seldinger technique. A 6-[place] catheter was l eft in place and selective coronary arteriography was performed. Patient tolerated the procedure well. TR band was applied for hemostasis. No immediate complications were noted and patient was transferred to [facility] in a stable condition Conscious Sedation: Versed 1mg Fentanyl 25 g Duration 18minutes HEMODYNAMICS: The aortic pressure is about 150/70. The left ventricle end- diastolic pressure is about 16. There was no gradient across the aortic valve SELECTIVE CORONARY ARTERIOGRAPHY: LEFT MAIN: Normal length and free of occlusive disease THE LEFT ANTERIOR DESCENDING CORONARY ARTERY:. Good caliber vessel giving rise good-sized diagonal branch. The diagonal branch has a stent which is patent. The LAD and branches are free of any significant occlusive disease THE LEFT CIRCUMFLEX AND IS CORONARY ARTERY:. Moderate caliber vessel free of occlusive disease THE RIGHT CORONARY ARTERY:. Probably dominant vessel but totally occluded as documented previously LEFT VENTRICULOGRAPHY: Not performed FINAL IMPRESSION: Stable coronary artery disease with patent stent in the diagonal and total occluded RCA. Rest of the coronary system is free of occlusive disease PLAN:. Maximum medical therapy and this factor modification PROGNOSIS: Fair
[2020-06-05] MEDS: SODIUM CHLORIDE 0.9% 1,000 ML IV SCH ×3 (12:17→23:42)
[2020-06-05] MEDS: HEPARIN SOD,PORK IN 0.45% NACL 25,000 UNIT in 0.45% NACL 1 250ML.BAG IV SCH (12:20)
[2020-06-05 16:42] LABS: Glucose,Whole Blood 113 mg/dL (75-99)
--- NOTE | 2020-06-05 18:44 | PN ---
PROGRESS NOTE DATE OF SERVICE: 06/05/2020 This 75-year-old woman who was admitted with chest pain and possible unstable angina had a cardiac catheterization today by Cardiology. The patient had an episode of chest pain this morning. Cardiac catheterization showed stable coronary artery disease with a patent stent in the diagonal and totally occluded RCA. Recommended maximum medical treatment. A 2D echo with Doppler was done by Cardiology again which showed ejection fraction about 55% to 60%, mild aortic valve sclerosis and trivial pericardial effusion. A chest CTA was showing no acute abnormality. D-dimer was elevated. No chest pain. No palpitations currently. PHYSICAL EXAMINATION: Alert and oriented x3. Pulse is 73, blood pressure 130/60, respirations 16, temperature 97.5, pulse ox 97% on room air. HEENT: Conjunctivae normal. NECK: No jugular venous distention. CARDIOVASCULAR SYSTEM: S1, S2 muffled. RESPIRATORY SYSTEM: Breath sounds diminished at the bases. No rhonchi. No crackles. ABDOMEN: Soft, non-tender. LEGS: No edema. No swelling. NERVOUS SYSTEM: No focal deficit. LABS: D-dimer is 0.71, glucose 132. Triglycerides are 425. ASSESSMENT: 1. Chest pain, possible unstable angina. 2. Status post cardiac catheterization showing stable coronary artery disease. 3. Elevated D-dimer of undetermined etiology, improved. 4. Rule out paroxysmal atrial fibrillation. 5. Diabetes mellitus, type 2. 6. PACs and PVCs. 7. History of cerebrovascular accident, transient ischemic attack. 8. History of gastroesophageal reflux disease. 9. Hypertension. 10.Hyperlipidemia. 11.History of degenerative joint disease. 12.History of hypothyroidism. 13.History of coronary artery disease, stent. 14.History of right breast benign lump. 15.History of anxiety. 16.Remote history of nicotine dependence. 17.Obesity with body mass index of 38.6. 18.FULL CODE. RECOMMENDATIONS AND DISCUSSION: I recommend to continue current medications, continue with the monitoring, symptomatic treatment. Will maximize the medical treatment. Also recommend ESR and sedimentation rate. Further recommendations to follow. Add Tricor to the current regimen. MMODL / IJN: [id number] /
[2020-06-05] MEDS: ISOSORBIDE MONONITRATE ER 15 MG TAB PO SCH (18:59)
[2020-06-05] MEDS: FENOFIBRATE 160 MG TAB PO SCH (20:05)
[2020-06-05 20:40] LABS: Glucose,Whole Blood 165 mg/dL (75-99)
[2020-06-06] MEDS: LEVOTHYROXINE 75 MCG TAB PO SCH (06:26)
[2020-06-06 06:27] LABS: Glucose,Whole Blood 161 mg/dL (75-99)
[2020-06-06] MEDS: GLIMEPIRIDE 2 MG TAB PO SCH (06:27)
[2020-06-06] MEDS: INSULIN ASPART (NovoLOG) 100 UNIT/ML VIAL SQ SCH ×2 (06:28→12:03)
[2020-06-06] MEDS: PANTOPRAZOLE 40 MG/10 ML VIAL IVP SCH (08:58)
[2020-06-06] MEDS: LISINOPRIL-HCTZ 20-12.5 MG 1 EACH TAB PO SCH (08:58)
[2020-06-06] MEDS: ISOSORBIDE MONONITRATE ER 15 MG TAB PO SCH (08:58)
[2020-06-06] MEDS: METOPROLOL TARTRATE 50 MG TAB PO SCH (08:58)
[2020-06-06] MEDS: CLOPIDOGREL 75 MG TAB PO SCH (08:58)
[2020-06-06] MEDS ORDERED: ASPIRIN 81 MG PO SCH (09:00)
[2020-06-06 09:30] LABS: Basophils # (A) 0.1 k/uL (0-0.2); Basophils % (A) 1 %; Eosinophils # (A) 0.6 k/uL (0-0.7); Eosinophils % (A) 8 %; HCT 39.1 % (34.0-46.0); HGB 12.6 gm/dL (11.4-16.0); Lymphocytes # (A) 1.5 k/uL (1.0-4.8); Lymphocytes % (A) 20 %; MCH 29.1 pg (25.0-35.0); MCHC 32.3 g/dL (31.0-37.0); Mean Platelet Volume 7.8; Monocytes # (A) 0.6 k/uL (0-1.0); Monocytes % (A) 8 %; Neutrophils # (A) 4.4 k/uL (1.3-7.7); Neutrophils % (A) 60 %; Platelet Count 333 k/uL (150-450); RBC 4.34 m/uL (3.80-5.40); RDW 12.4 % (11.5-15.5); WBC 7.3 k/uL (3.8-10.6)
[2020-06-06 09:48] LABS: African American GFR (CKD) >90 (>60 ml/min/1.73 sqM); Anion Gap 8 mmol/L; Blood Urea Nitrogen 25 mg/dL (7-17); Calcium 9.5 mg/dL (8.4-10.2); Carbon Dioxide 29 mmol/L (22-30); Chloride 98 mmol/L (98-107); Glucose 187 mg/dL (74-99); Non-African American GFR(CKD) 86 (>60 ml/min/1.73 sqM); Potassium 4.4 mmol/L (3.5-5.1); Sodium 135 mmol/L (137-145)
[2020-06-06 11:25] VITALS: BP 117/56; PULSE 76; RESP 19; TEMP 97.5
[2020-06-06 12:06] LABS: Glucose,Whole Blood 114 mg/dL (75-99)
--- NOTE | 2020-06-06 12:29 | P.PN ---
Subjective Progress Note Date: 06/06/20 CHIEF COMPLAINT: Chest pain HISTORY OF PRESENT ILLNESS: Patient examined this morning at the bedside. She is s/p cardiac cath revealing stable coronary artery disease with patent stent in the diagonal and totally occluded RCA. Patient denies chest pain or pressure. Denies shortness of breath. Vital signs are stable. PHYSICAL EXAM: VITAL SIGNS: Reviewed. GENERAL: Well-developed in no acute distress. HEENT: Head is normocephalic. Pupils are equal, round. Sclerae anicteric. Mucous membranes of the mouth are moist. Neck supple. No JVD or thyromegaly LUNGS: Respirations even and unlabored. Lungs essentially clear to auscultation bilaterally. HEART: Regular rate and rhythm. S1 and S2 heard. ABDOMEN: Soft. Nondistended. Nontender. EXTREMITIES: Normal range of motion. No clubbing or cyanosis. Peripheral pulses intact. No lower extremity edema. Right radial cath site with pulse present. NEUROLOGIC: Awake and alert. Oriented x 3. ASSESSMENT: Chest pain Coronary artery disease with previous PCI to LAD and chronic total occlusion of RCA Hypertension Hyperlipidemia Hypertriglyceridemia Diabetes mellitus, type II Obesity: BMI 38.6 PLAN: Patient is stable for discharge home today from a cardiac perspective She is to follow up outpatient with Dr. Dubon Nurse practitioner note has been reviewed by physician. Signing provider agrees with the documented findings, assessment, and plan of care. Objective - Vital Signs Vital signs: Vital Signs Temp 97.5 F L 06/06/20 09:00 Pulse 76 06/06/20 09:00 Resp 19 06/06/20 09:00 BP 117/56 06/06/20 09:00 Pulse Ox 96 06/06/20 09:00 Intake & Output 06/05/20 06/06/20 06/06/20 18:59 06:59 18:59 Intake Total 522 240 120 Balance 522 240 120 Weight 104.2 kg Intake: IV 50 Oral 472 240 120 Other: Voiding Method Toilet Toilet # Voids 1 2 - Labs CBC & Chem 7: 06/06/20 08:24 06/06/20 08:24 Labs: Abnormal Lab Results - Last 24 Hours (Table) 06/05/20 06/05/20 06/06/20 Range/Units 16:40 20:38 06:26 Sodium (137-145) mmol/L BUN (7-17) mg/dL Glucose (74-99) mg/dL POC Glucose (mg/dL) 113 H 165 H 161 H (75-99) mg/dL 06/06/20 06/06/20 Range/Units 08:24 12:01 Sodium 135 L (137-145) mmol/L BUN 25 H (7-17) mg/dL Glucose 187 H (74-99) mg/dL POC Glucose (mg/dL) 114 H (75-99) mg/dL Microbiology - Last 24 Hours (Table) 06/04/20 20:51 Blood Culture - Preliminary Blood No Growth after 24 hours
--- NOTE | 2020-06-07 04:06 | DS ---
DISCHARGE SUMMARY DATE OF SERVICE: 06/06/2020 FINAL DIAGNOSES: 1. Chest pain, possible unstable angina. 2. Status post cardiac catheterization showing stable coronary artery disease. 3. Elevated D-dimer of undetermined etiology, improved. 4. No evidence of atrial fibrillation in the telemetry. 5. Diabetes mellitus type 2. 6. PACs and PVCs. 7. History of cerebrovascular accident and transient ischemic attack. 8. History of gastroesophageal reflux disease. 9. Hypertension. 10.Hyperlipidemia. 11.History of degenerative joint disease. 12.History of hypothyroidism. 13.History of coronary artery disease, stent. 14.History of right breast benign lump. 15.History of anxiety. 16.Remote history of nicotine dependence. 17.Obesity with body mass index of 38.6. 18.FULL CODE. DISCHARGE DISPOSITION: The patient will be discharged in stable condition with guarded prognosis. Cardiology cleared the patient for discharge. HISTORY OF PRESENT ILLNESS: This 75-year-old woman with a past medical history of multiple medical problems admitted with chest pain. Myocardial infarction ruled out. Cardiology performed a cardiac cath showing stable coronary artery disease. On exam, vitals are stable. CARDIOVASCULAR: S1, S2 muffled. ABDOMEN: Soft. NERVOUS SYSTEM: No focal deficits. Patient improved significantly. Medical treatment recommended by Cardiology. Patient will be discharged home in a stable condition with guarded prognosis. DISCHARGE ADVICE AND MEDICATIONS: 1. Diet is cardiac. 2. Activity limited until followup. 3. Follow up with Dr. House in 2-3 days. 4. Follow up with Dr. Dubon as recommended. Medications are: 1. Amaryl 2 mg daily. 2. Lopid 600 mg p.o. b.i.d. 3. Lopressor 50 mg p.o. daily. 4. Metformin 1000 mg p.o. b.i.d. 5. Fish oil daily. 6. Ozempic 0.25 mg subcu Wednesday. 7. Prilosec 20 mg p.o. daily. 8. Synthroid 150 mcg p.o. daily. 9. Lisinopril hydrochlorothiazide 20/12.5 mg one p.o. b.i.d. 10.Aspirin 81 mg p.o. daily. 11.Imdur ER 15 mg p.o. daily. 12.Nitroglycerin p.r.n. 13.Plavix 75 mg p.o. daily. Once again, the patient will be discharged in stable condition with guarded prognosis. MMODL / IJN: [id number] /
[2020-06-07] MEDS ORDERED: metFORMIN 500 MG TAB PO SCH (07:30)
[2020-06-07] MEDS ORDERED: PANTOPRAZOLE 40 MG TABLET PO SCH (09:00)
[2020-06-10] MEDS ORDERED: SEMAGLUTIDE 0.25 MG/0.2 ML SQ SCH (12:00)
== END 2020-06-06 14:24 | disposition home or self-care (01) ==
LOC: EC 14:09 → 1SOBS 16:46 → 3SCARD 21:41
PROVIDERS: ADMIT Hospitalist; ATTEND Hospitalist
DX: R07.89 Other chest pain (principal); R79.89 Other specified abnormal findings of blood chemistry; R06.02 Shortness of breath; I10 Essential (primary) hypertension; E03.9 Hypothyroidism, unspecified; E11.9 Type 2 diabetes mellitus without complications; I49.1 Atrial premature depolarization; I49.3 Ventricular premature depolarization; K21.9 Gastro-esophageal reflux disease without esophagitis; E78.5 Hyperlipidemia, unspecified; M19.90 Unspecified osteoarthritis, unspecified site; F41.9 Anxiety disorder, unspecified; E66.9 Obesity, unspecified; Z68.39 Body mass index [BMI] 39.0-39.9, adult; I25.10 Atherosclerotic heart disease of native coronary artery without angina pectoris; I25.82 Chronic total occlusion of coronary artery; E78.1 Pure hyperglyceridemia; I35.8 Other nonrheumatic aortic valve disorders; Z95.5 Presence of coronary angioplasty implant and graft; Z86.73 Personal history of transient ischemic attack (TIA), and cerebral infarction without residual deficits; Z87.891 Personal history of nicotine dependence; Z79.899 Other long term (current) drug therapy; Z79.02 Long term (current) use of antithrombotics/antiplatelets; Z79.890 Hormone replacement therapy; Z79.84 Long term (current) use of oral hypoglycemic drugs; Z91.048 Other nonmedicinal substance allergy status; Z82.49 Family history of ischemic heart disease and other diseases of the circulatory system; Z20.828 Contact with and (suspected) exposure to other viral communicable diseases
CPT/HCPCS: 96376 ×2; 96366 ×3; 93005 ×2; 96365; 96375; 99291; 36415; 93306; 93458; 85379 ×2; 83880; 80061; 80053; 80048 ×2; 85652 ×2; 82550; 83615; 83735; 84484; 85025 ×3; 85610; 85730 ×2; 86140 ×2; 81001; 87040; 71046; 71275; G0378 ×4; C1769 ×2; C1894; U0003; J2250; J1644 ×3; J2001; J3010; C9113 ×3; Q9967 ×2

== ENCOUNTER → 2021-04-22 | Outpatient (CLI) | payer MEDICARE ==
--- NOTE | 2021-04-24 10:21 | MM ---
Reason for exam: screening (asymptomatic). Last mammogram was performed 1 year and 1 month ago. History: Patient is postmenopausal. Benign excisional biopsy of the right breast, 1998. Physical Findings: A clinical breast exam by your physician is recommended on an annual basis and results should be correlated with mammographic findings. MG Screening Mammo w CAD Bilateral CC and MLO view(s) were taken. Prior study comparison: March 12, 2020, mammogram, performed at [facility]. March 07, 2019, mammogram, performed at [facility]. The breast tissue is heterogeneously dense. This may lower the sensitivity of mammography. No significant changes when compared with prior studies. ASSESSMENT: Benign, BI-RAD 2 RECOMMENDATION: Routine screening mammogram of both breasts in 1 year.
== END | disposition home or self-care (01) ==
LOC: RADMAMWWP 11:37
PROVIDERS: ATTEND Internal Medicine
DX: Z12.31 Encounter for screening mammogram for malignant neoplasm of breast (principal)
CPT/HCPCS: 77067

== ENCOUNTER → 2023-03-17 | Outpatient (CLI) | payer MEDICARE ==
--- NOTE | 2023-03-17 14:25 | MM ---
Reason for Exam: Screening (asymptomatic). Last mammogram was performed 1 year(s) and 11 month(s) ago. Patient History: Menarche at age 15. First Full-Term at age 20. Postmenopausal. 1998, Benign Excisional Biopsy on the right side. Risk Values: Saray 5 year model risk: 1.4%. NCI Lifetime model risk: 2.8%. Prior Study Comparison: 03/07/2019 Screening Mammogram, [facility]. 03/12/2020 Screening Mammogram, [facility]. 04/22/2021 Bilateral Screening Mammogram, [facility]. Tissue Density: There are scattered fibroglandular densities. Findings: Analyzed By CAD. There is no suspicious group of microcalcifications or new suspicious mass in either breast. Overall Assessment: Negative, BI-RAD 1 Management: Screening Mammogram of both breasts in [address] [facility] will attempt to contact patient to return for supplemental views and ultrasound if indicated. Patient should continue monthly self-breast exams. A clinical breast exam by your physician is recommended on an annual basis. This exam should not preclude additional follow-up of suspicious palpable abnormalities. Note on Saray scores and lifetime risk: 1. A Saray score greater than 3% is considered moderate risk. If this is the case, consider specialist referral to assess eligibility for a risk reducing agent. 2. If overall lifetime risk for the development of breast cancer is 20% or higher, the patient may qualify for future screening with alternating mammogram and breast MRI. Electronically signed and approved by: Chace Mccullough DO
== END | disposition home or self-care (01) ==
LOC: RADMAMWWP 09:51
PROVIDERS: ATTEND Internal Medicine
DX: Z12.31 Encounter for screening mammogram for malignant neoplasm of breast (principal); Z78.0 Asymptomatic menopausal state
CPT/HCPCS: 77067

== ENCOUNTER → 2023-06-14 | Outpatient (CLI) | payer MEDICARE ==
[2023-06-14 16:29] LABS: Blood Urea Nitrogen 16.7 mg/dL (9.0-27.0); Carbon Dioxide 27.1 mmol/L (21.6-31.8); Chloride 99 mmol/L (96-109); Sodium 142 mmol/L (135-145)
[2023-06-14 16:49] LABS: HCT 47.4 % (37.2-46.3); MCH 28.6 pg (27.0-32.0); MCHC 31.6 d/dL (32.0-37.0); MCV 90.5 FL (80.0-97.0); Mean Platelet Volume 11.3 FL (9.5-12.2); NRBC Per 100 WBC 0 X 10*3/uL (0.00-0.01); Platelet Count 307 X 10*3/uL (140-440); RBC 5.24 X 10*6/uL (4.10-5.20); RDW 14.4 % (11.5-14.5)
== END | disposition home or self-care (01) ==
LOC: LABWHC1 08:55
PROVIDERS: ATTEND Internal Medicine Interventional Cardiology
DX: Z01.812 Encounter for preprocedural laboratory examination (principal); R06.02 Shortness of breath
CPT/HCPCS: 36415; 80051; 82565; 84520; 85027

== ENCOUNTER 2023-06-21 09:57 | Day surgery (SDC) | payer MEDICARE ==
[~2023-06-21 09:57] MED LIST changes: -ATORVASTATIN 80 MG TAB PO STA; -SODIUM CHLORIDE 0.9% 1,000 ML in EMPTY BAG 1 BAG IV ONE; +SODIUM CHLORIDE 0.9% 1,000 ML in EMPTY BAG 1 BAG IV SCH
[2023-06-21 11:11] LABS: Glucose,Whole Blood 140 mg/dL (70-110)
[2023-06-21 11:22] VITALS: RESP 16; TEMP 97.8
[2023-06-21] MEDS ORDERED: HEPARIN SODIUM 1,000 UN/ML (10ML VL) ONE (11:36)
[2023-06-21] MEDS ORDERED: VERAPAMIL 2.5 MG/ML 2 ML AMP ONE (11:37)
[2023-06-21] MEDS ORDERED: IV FLUID CONTINUATION 1,000 ML IV ONE (11:37)
[2023-06-21] MEDS ORDERED: MIDAZOLAM 2 MG/2 ML VIAL IVP ONE (12:09)
[2023-06-21] MEDS ORDERED: LIDOCAINE 1% INJ 10MG/ML (5 ML VIAL-PF) SQ ONE (12:10)
[2023-06-21] MEDS ORDERED: VERAPAMIL SYRINGE (5 MG/10 ML) INTRAARTER ONE (12:11)
[2023-06-21] MEDS ORDERED: HEPARIN SODIUM 1,000 UN/ML (10ML VL) IVP ONE (12:13)
[2023-06-21] MEDS ORDERED: IOPAMIDOL-370 100ML BTL INJ ONE (12:19)
[2023-06-21] MEDS ORDERED: RX INFO: IV CONTRAST WAS GIVEN 1 EACH MISC MISCELLANE PRN (12:23)
--- NOTE | 2023-06-21 12:28 | P.PCN ---
Date of Procedure: 06/21/23 Operative Findings: CARDIAC CATHETERIZATION PERFORMING PHYSICIAN: Hernán Dubon MD, RPVI PROCEDURE PERFORMED: 1. Selective right and left coronary angiogram 2. Left heart catheterization 3. Ultrasound-guided access of the right radial artery INDICATION: Chest discomfort and this 78-year-old female patient was known CAD and prior stenting of the diagonal branch and known chronic total occlusion of the LAD as well as diabetes and hypertension and dyslipidemia. The patient underwent myocardial perfusion imaging stress test and that revealed an anterior ischemia COMPLICATION: None APPROACH: Right radial artery LEVEL OF SEDATION: Moderate with a sedation length of 10 minutes PROCEDURE DESCRIPTION: After obtaining an informed consent, the patient was brought to cardiac director labor standards. Local anesthesia was performed using lidocaine subcutaneously. The right radial artery was cannulated using Seldinger technique, the guidewire passed easily, following that we advanced a 5-Micronesian sheath dilator assembly, the wire and dilator were removed and sheath was flushed. Following that, 2 mg of verapamil along with 5000 unit heparin were given. Selective right and left coronary angiogram using a 6-Micronesian JR4 and JL 3.5 catheters. Following that we did left heart catheterization using 6-Micronesian pigtail catheter. The procedure was completed there was no complication. SELECTIVE CORONARY ANGIOGRAM: The right coronary artery: Large-caliber vessel and a dominant vessel. The RCA is chronically occluded in the midportion which is a known finding from before. The RCA fills by ipsilateral and contralateral collaterals Left main: Is angiographically normal. Bifurcates into an LCx and LAD The left circumflex: Large caliber vessel nondominant vessel. The ostial LCx has mild disease only. Gives rises into the first and second and third obtuse marginal branches and what appears to be angiographically normal The left anterior descending artery: Large-caliber vessel. The LAD proximally gives rises into a diagonal branch which is a large caliber vessel stented and the stent is patent. The mid LAD has a segment of myocardial bridging. The LAD in the mid to distal portion has mild disease only. Extensive [id number] collateral identified filling the RCA HEMODYNAMICS: The LVEDP was 12 mmHg was no significant gradient across aortic valve CONCLUSION: 1. Chronic total occlusion of the RCA which is a known finding from before 2. Mild disease involving the left coronary system. Patent stent in the may gonal. Myocardial bridging of the mid LAD POSTPROCEDURE MANAGEMENT: Medical treatment at this point
[2023-06-21] MEDS ORDERED: SODIUM CHLORIDE 0.9% 1,000 ML IV SCH (12:30)
[2023-06-21 15:57] VITALS: BP 111/56; PULSE 62
== END 2023-06-21 16:05 | disposition home or self-care (01) ==
LOC: CATHCVL 09:57
PROVIDERS: ATTEND Internal Medicine Interventional Cardiology
DX: I25.10 Atherosclerotic heart disease of native coronary artery without angina pectoris (principal); Q24.5 Malformation of coronary vessels; E78.5 Hyperlipidemia, unspecified; I10 Essential (primary) hypertension; E11.9 Type 2 diabetes mellitus without complications; I25.82 Chronic total occlusion of coronary artery; Z95.5 Presence of coronary angioplasty implant and graft; Z79.82 Long term (current) use of aspirin; Z79.899 Other long term (current) drug therapy
CPT/HCPCS: 93458; 76937; C1769; C1894; J2250; J2001; J1644; Q9967

== ENCOUNTER → 2024-05-25 | Outpatient (CLI) | payer MEDICARE ==
--- NOTE | 2024-05-25 14:20 | MM ---
Reason for Exam: Screening (asymptomatic). Last mammogram was performed 1 year(s) and 3 month(s) ago. Patient History: Menarche at age 15. First Full-Term at age 20. Postmenopausal. 1998, Benign Excisional Biopsy on the right side. Risk Values: Saray 5 year model risk: 1.3%. NCI Lifetime model risk: 2.4%. Prior Study Comparison: 03/12/2020 Screening Mammogram, [facility]. 04/22/2021 Bilateral Screening Mammogram, [facility]. 03/17/2023 Bilateral MG screening mammo w CAD, [facility]. Tissue Density: There are scattered areas of fibroglandular density. Findings: Analyzed By CAD. There is no suspicious group of microcalcifications or new suspicious mass in either breast. Overall Assessment: Benign, BI-RAD 2 Management: Screening Mammogram of both breasts in 1 year. . Patient should continue monthly self-breast exams. A clinical breast exam by your physician is recommended on an annual basis. This exam should not preclude additional follow-up of suspicious palpable abnormalities. Note on Saray scores and lifetime risk: 1. A Saray score greater than 3% is considered moderate risk. If this is the case, consider specialist referral to assess eligibility for a risk reducing agent. 2. If overall lifetime risk for the development of breast cancer is 20% or higher, the patient may qualify for future screening with alternating mammogram and breast MRI. [facility], , 05/25/2024 2:16 PM. Electronically signed and approved by: Pedro Mccullough M.D. Radiologis
== END | disposition home or self-care (01) ==
LOC: RADMAMWWP 07:50
PROVIDERS: ATTEND Internal Medicine
DX: Z12.31 Encounter for screening mammogram for malignant neoplasm of breast
CPT/HCPCS: 77067

== ENCOUNTER → 2024-12-12 | Outpatient (CLI) | payer MEDICARE ==
[2024-12-12 11:53] LABS: INR 0.9 (<1.2); Partial Thromboplastin Time 25.1 sec (22.0-30.0); Prothrombin Time 10.6 sec (10.0-12.5)
[2024-12-12 14:49] LABS: HCT 44.9 % (37.2-46.3); HGB 14.3 g/dL (12.0-15.0); MCH 30.1 pg (27.0-32.0); MCHC 31.8 g/dL (32.0-37.0); MCV 94.5 FL (80.0-97.0); Mean Platelet Volume 11.3 FL (9.5-12.2); NRBC Per 100 WBC 0 X 10*3/uL (0.00-0.01); Platelet Count 300 X 10*3/uL (140-440); RBC 4.75 X 10*6/uL (4.10-5.20); RDW 14.2 % (11.5-14.5); WBC 7.04 X 10*3/uL (4.50-10.00)
[2024-12-12 14:58] LABS: ALT 18 U/L (8-44); AST 20 U/L (13-35); Albumin 4.2 g/dL (3.8-4.9); Albumin/Globulin Ratio 1.56 Ratio (1.60-3.17); Alkaline Phosphatase 61 U/L (41-126); Blood Urea Nitrogen 23.6 mg/dL (9.0-27.0); Calcium 9.8 mg/dL (8.7-10.3); Carbon Dioxide 23.5 mmol/L (21.6-31.8); Chloride 101 mmol/L (96-109); Globulin 2.7 g/dL (1.6-3.3); Glucose 267 mg/dL (70-110); Potassium 4.3 mmol/L (3.5-5.5); Sodium 140 mmol/L (135-145); Total Bilirubin 0.3 mg/dL (0.3-1.2); Total Protein 6.9 g/dL (6.2-8.2)
== END | disposition home or self-care (01) ==
LOC: LABWHC1 11:00
PROVIDERS: ATTEND Orthopaedic Surgery
DX: Z01.812 Encounter for preprocedural laboratory examination (principal); Z22.322 Carrier or suspected carrier of Methicillin resistant Staphylococcus aureus; M17.11 Unilateral primary osteoarthritis, right knee; E11.9 Type 2 diabetes mellitus without complications
CPT/HCPCS: 36415; 80053; 83036; 85027; 85610; 85730; 87070

== ENCOUNTER → 2024-12-12 | Outpatient (CLI) | payer MEDICARE ==
--- NOTE | 2024-12-12 14:19 | CT ---
EXAMINATION TYPE: CT right knee - ALONSO Protocol DATE OF EXAM: 12/12/2024 12:39 PM COMPARISON: None. CLINICAL INDICATION: Female, 79 years old with history of M25.561 PAIN IN RIGHT KNEE; PHH, right knee pain, pain, TECHNIQUE: Axial images were obtained of the bilateral hips, knee and bilateral ankles: CT right kne e - ALONSO Protocol, Additional coronal and sagittal reformatted images and soft tissue and bone window were obtained for review of the bilateral hips, knee and bilateral ankles. Contrast used: mL of , (None if empty) Oral contrast used: (None if empty) CT DLP: 966 mGycm, Automated exposure control for dose reduction was used. FINDINGS: The visualized portion of the hips demonstrate mild osteoarthrosis changes with osteophyte formation of the acetabulum. No acute intrapelvic process. The bony structures of the pelvis are intact. The visualized knee demonstrates osteophyte formation of the tibial plateau, the patella and femoral condyles. There is severe joint space narrowing and subchondral sclerosis. No evidence of fracture. Distal femoral or lesion possibly representing an enchondroma measuring 12 x 8 mm. The visualized ankles demonstrates multifocal osteoarthrosis changes with osteophyte formation and mi ld joint space narrowing. No evidence of fractures. Remote right deltoid ligament injury with calcifi cations suggestive present. Remote fibulotalar ligament injury on the right suggested of calcificatio ns. Other: Scattered colonic diverticulosis. IMPRESSION: 1. Moderate to severe osteoarthrosis changes of the knee. 2. Distal femur probable and enchondroma [facility], , 12/12/2024 2:17 PM
== END | disposition home or self-care (01) ==
LOC: RADCTMAIN 11:32
PROVIDERS: ATTEND Orthopaedic Surgery
DX: M17.11 Unilateral primary osteoarthritis, right knee (principal); E11.9 Type 2 diabetes mellitus without complications

== ENCOUNTER 2024-12-29 05:34 | Day surgery (SDC) | payer MEDICARE ==
[2024-12-25 09:18] VITALS: BMI 36.0
[2024-12-29] MEDS ORDERED: TRANEXAMIC 1,000 MG/100ML-NACL 1,000 MG in SALINE 1 100ML.BAG IVPB PRN (06:00)
[2024-12-29] MEDS ORDERED: TRANEXAMIC 1,000 MG/100ML-NACL 1,000 MG in SALINE 1 100ML.BAG IV PRN (06:00)
[2024-12-29] MEDS: IV FLUID CONTINUATION 1,000 ML IV ONE (06:12)
[2024-12-29 06:24] LABS: Glucose,Whole Blood 144 mg/dL (70-110)
[2024-12-29] MEDS: LACTATED RINGERS 1,000 ML IV SCH (06:34)
[2024-12-29] MEDS: DOCUSATE 100 MG CAP PO PRN (06:35)
[2024-12-29] MEDS: oxyCODONE ER 10 MG TAB.ER.12H PO PRN (06:35)
[2024-12-29] MEDS: KETOROLAC 15 MG/ML 1 ML VIAL IVP PRN (06:36)
[2024-12-29] MEDS: FAMOTIDINE 20 MG/2 ML VIAL IVP PRN (06:36)
[2024-12-29] MEDS: ACETAMINOPHEN TAB 500 MG TAB PO PRN (06:36)
[2024-12-29] MEDS: ONDANSETRON 4 MG/2 ML VIAL IVP PRN (06:36)
[2024-12-29] MEDS: fentaNYL (PF) 50 MCG/ML 2 ML AMP IVP STA (06:48)
[2024-12-29] MEDS: MIDAZOLAM 2 MG/2 ML VIAL IV PRN (06:48)
[2024-12-29] MEDS: DEXAMETHASONE SOD PHOSPHATE 10 MG/ML 1 ML VIAL IV PRN (06:58)
[2024-12-29] MEDS: ceFAZolin 2 GM in DEXTROSE 5% IN WATER 50 ML IVPB PRN (07:00)
[2024-12-29] MEDS ORDERED: HYDROmorphone 0.5 MG/0.5 ML SYRINGE IVP PRN ×4 (07:00→08:44)
[2024-12-29] MEDS ORDERED: TRANEXAMIC 1,000 MG/100ML-NACL PREMIX BAG ONE (07:28)
[2024-12-29] MEDS ORDERED: PHENYLEPHRINE-0.9% NACL SYG 1,000 MCG/10 ML SYRINGE ONE (07:28)
[2024-12-29] MEDS ORDERED: ROPIVACAINE 5 MG/ML 30 ML VIAL ONE (07:28)
[2024-12-29] MEDS ORDERED: MIDAZOLAM 2 MG/2 ML VIAL ONE (07:28)
[2024-12-29] MEDS ORDERED: DEXAMETHASONE SOD PHOSPHATE 4 MG/ML 1 ML VIAL ONE (07:28)
[2024-12-29] MEDS ORDERED: SODIUM CHLORIDE 0.9% (PF) 10 ML VIAL ONE (07:28)
[2024-12-29] MEDS ORDERED: PROPOFOL 10 MG/ML 20 ML VIAL IV ONE (07:28)
[2024-12-29] MEDS ORDERED: ePHEDrine 50 MG/ML 1 ML VIAL ONE (07:28)
[2024-12-29] MEDS: ROPIVACAINE/EPI/CLONIDINE/KET 50 ML SYRINGE MISCELLANE PRN (07:33)
[2024-12-29] MEDS ORDERED: ONDANSETRON 4 MG/2 ML VIAL IVP PRN (08:44)
[2024-12-29] MEDS ORDERED: NALOXONE 0.4 MG/ML 1 ML VIAL IV PRN (08:44)
[2024-12-29] MEDS ORDERED: hydrOXYzine pamoate 25 MG CAP PO PRN (08:44)
[2024-12-29] MEDS ORDERED: bisacodyL 10 MG SUPP RECTAL PRN (08:44)
[2024-12-29] MEDS ORDERED: NA PHOS,M-B/NA PHOS,DI-BA 133 ML ENEMA RECTAL PRN (08:44)
[2024-12-29] MEDS ORDERED: MAGNESIUM HYDROXIDE 2,400 MG/30 ML CUP PO PRN (08:44)
[2024-12-29] MEDS ORDERED: diazePAM 5 MG TAB PO PRN ×2 (08:44)
[2024-12-29] MEDS ORDERED: HYDROcodone/APAP 10-325MG 1 EACH TAB PO PRN (08:44)
--- NOTE | 2024-12-29 08:44 | P.OP ---
Date of Procedure: 12/29/24 Preoperative Diagnosis: Severe right knee arthritis Postoperative Diagnosis: Same Procedure(s) Performed: 1. Right total knee arthroplasty 2. Computer assisted musculoskeletal navigation using CT/MRI images Implants: 1. [place] [employer] CR Femur Size #3 2. [place] [employer] [place] Tibial Base Size #3 3. [place] [employer] CS poly Size #3, 9-mm 4. [place] [employer]lon all poly patella, Size #32 Anesthesia: SKYLA, regional Surgeon: Sergio Burr Welt Treater #1: Ken Gonzalez Estimated Blood Loss (ml): 100 IV fluids (ml): 800 Pathology: none sent Condition: stable Disposition: PACU Indications for Procedure: I met with the patient preoperatively in the office setting and discussed treatment of their symptomatic knee arthritis. They failed a long course of nonsurgical treatment and elected to proceed with an elective total knee replacement. I discussed the potential risks and complications at length and gave them ample time to ask questions. Risks discussed included: risks from anesthesia, superficial site surgical infection, acute and/or chronic periprosthetic joint infection, delayed wound healing, drainage, wound necrosis, instability, stiffness, stiffness requiring manipulation and/or revision surgery, damage to local blood vessels or nerves, aseptic loosening of the implants, extensor mechanism issues including disruption, patellar maltracking, avascular necrosis etc., continued or worsened knee pain, generalized dissatisfaction with surgical outcome, need for revision surgery, an inability to regain preinjury level of function, DVT, PE, other medical complications, and possibly loss of life or limb. The patient voiced their understanding that while these are the most common complications other less common complications are possible. They provided both their verbal and written consent to go forward with surgery. Operative Findings: Severe tricompartmental osteoarthritis Description of Procedure: The patient was identified in preoperative holding and the correct operative extremity was verified and marked with a marker. I reviewed the consent form with the patient at length. All of their questions were answered. The patient was given a block by anesthesia. They were then brought back to the operating room. They were transferred onto the operating room table where a general anesthetic, preoperative antibiotics, and tranexamic acid were administered by anesthesia. A tourniquet was applied to the proximal aspect of the operative extremity. The contralateral extremity was padded under the heel and secured to the operating room table with a nonsterile blue towel and tape. The ipsilateral arm was carefully draped across the patient's chest and secured with a pillow and foam. A post was applied over the lateral aspect of the ipsilateral thigh and a bolster was placed under the ipsilateral foot. I verified that the operative extremity was stable and the knee was flexed to 90. The operative extremity was then placed in a leg johnson, nonsterile drapes were applied, and the extremity was prepped and draped sterilely in the standard sterile fashion. Prior to starting surgery timeout was performed identifying the correct patient, operative extremity, and procedure. The leg was then elevated, exsanguinated with an Esmarch bandage, and the tourniquet was inflated. An anterior midline incision was made sharply with a scalpel. Once I had dissected deep to the superficial fascial layer medial and lateral flaps were elevated. A medial parapatellar arthrotomy was created. Upon opening the knee joint there were diffuse arthritic changes in all 3 compartments. The anterior horn of the medial meniscus were sharply released and a medial release was performed around the posterior medial corner of the knee to facilitate retractor placement. The fat pad was excised with electrocautery. Remnants of the ACL and PCL were then excised from the notch. 4 mm pins were then placed within the incision in the medial distal femur and proximal tibia. Arrays were applied to the pins and I verified they were completely tightened. The knee was then registered with the [employer] Mobile robot and manipulations in implant position were made to balance the knee and opitmize implant position. Using the Jaleel robotic saw all cuts were made in accordance with our plan. After all bony fragments had been removed the cuts were verified with the planar probe. The tibia was then subluxed forward and sized. The knee was brought into flexion and a lamina blacktop spreader was placed to allow removal of the meniscal remnants both medially and laterally as well as posterior osteophytes. Local anesthetic was then infiltrated around the joint capsule. Trial implants were then placed within the knee. Range of motion and collateral ligament tension was then evaluated. Adjustments in implant size and position were then made accordingly. Once the knee was felt to be appropriately balanced the Jaleel pins were removed. The patella was then cut, sized, and punched. A trial patellar button was then placed. With the trial components in place, the patella tracked midline. The femur was then drilled and the trial component removed. The trial tibial component was then appropriately rotated, pinned, and prepared for the keel. All trial components were then removed from the knee. The knee was thoroughly irrigated with pulsatile lavage. Cement was prepared via vacuum mixing in a bowl on the back table. Once the cement had reached appropriate consistency, I hand pressurized cement into the tibia and gently impacted the tibial implant into place. Cement was carefully removed from around the tibial tray and the poly liner was tapped into placed, engaging the locking mechanism. The femur was then exposed and cement was hand pressurized into the cut surfaces. The femoral implant was gently tapped into place and cement was carefully removed. A wet lap sponge was used to wipe down the bearing surface of the femur and the knee was extended to further pressurize cement. With the knee extended, cement was pressurized into the cut surface of the patella and the patella button was placed and compressed with a clamp. All extruded cement was removed including from the pin sites. The knee was held in extension until the cement had fully hardened. Once the cement had hardened the knee was evaluated one final time with the final polyethylene liner in place. The knee had full extension and flexion and felt stable to varus and valgus stress throughout the arc of motion. The tourniquet was released and with the tourniquet down the patella tracked midline. All bleeders were controlled with electrocautery. The knee was then soaked for 3 minutes with a dilute Betadine soak. The knee was thoroughly irrigated using 3 L of sterile saline and pulsatile lavage. A deep drain was placed. The extensor mechanism was then reapproximated using pop off Vicryl sutures followed by a running barbed suture. The knee was then closed in layers with a 0 strata fix for the deep fascial layer, 2-0 strata fix for the superficial subcutaneous layer and Monocryl and Steri-Strips for the skin. A sterile dressing and drain sponge were applied. I verified that all instrument, sponge, and sharp counts were correct. The patient was then transferred off the operating room table, extubated, and brought to recovery having tolerated the procedure well. Ken Gonzalez PA-C was required as a skilled medical staff assistant due to the complexity of surgery for patient positioning, draping, exposure, retraction, closure of wound and application of dressing. PLAN: The patient can weight-bear as tolerated on the operative extremity. DVT prophylaxis with aspirin 81 mg twice a day based on preoperative risk stratification. Follow-up in the office in 2 weeks for wound check and x-rays of the knee including an AP and lateral.
--- NOTE | 2024-12-29 09:45 | XR ---
EXAMINATION TYPE: XR knee limited RT DATE OF EXAM: 12/29/2024 CLINICAL INDICATION: Female, 79 years old with history of Evaluation for Postop abnormality and align ment, pain TECHNIQUE: Frontal and lateral views of the knee were obtained. COMPARISON: CT right knee December 12, 2024. FINDINGS: Metallic hardware from total RIGHT knee arthroplasty is seen and appears satisfactory in a lignment and position. There is evidence of recent surgery with diffuse subcutaneous gas and soft ti ssue swelling noted. IMPRESSION: METALLIC HARDWARE FROM TOTAL RIGHT KNEE ARTHROPLASTY IS SATISFACTORY IN ALIGNMENT. [facility], , 12/29/2024 9:43 AM
[2024-12-29] MEDS: SODIUM CHLORIDE 0.9% 1,000 ML IV SCH (12:27)
[2024-12-29] MEDS: ceFAZolin 2 GM in DEXTROSE 5% IN WATER 50 ML IVPB SCH (14:03)
--- NOTE | 2024-12-29 15:45 | P.ANPRN ---
Procedure Note - Anesthesia - Nerve Block Performed Right Adductor Canal Single Time Out Performed: Yes (0647) Date of Procedure: 12/29/24 Procedure Start Time: 06:48 Procedure Stop Time: 06:51 Location of Patient: PreOp Indication: Acute Post-Operative Pain, Requested by Surgeon Specifically requested for management of pain by DrCollin: Sergio Burr Sedation Type: Sedate with meaningful contact maintained Preparation: Sterile Prep Position: Supine Catheter: None Needle Types: Pajunk Needle Gauge: 21 Ultrasound used to visualize needle placement: Yes Ultrasound used to observe medication spread: Yes Injectate: 0.5% Ropivacaine (see comment for volume) (15cc+10cc nacl pf+decadron 4mg) Blood Aspirated: No Pain Paresthesia on Injection Noted: No Resistance on Injection: Normal Image Stored and Saved: Yes Events: Uneventful and Well Tolerated
--- NOTE | 2024-12-29 15:46 | P.ANPRN ---
Procedure Note - Anesthesia - Nerve Block Performed Left iPack Single Time Out Performed: Yes (0647) Date of Procedure: 12/29/24 Procedure Start Time: 06:52 Procedure Stop Time: 06:55 Location of Patient: PreOp Indication: Acute Post-Operative Pain, Requested by Surgeon Specifically requested for management of pain by DrCollin: Sergio Burr Sedation Type: Sedate with meaningful contact maintained Preparation: Sterile Prep Position: Supine Catheter: None Needle Types: Pajunk Needle Gauge: 21 Ultrasound used to visualize needle placement: Yes Ultrasound used to observe medication spread: Yes Injectate: 0.5% Ropivacaine (see comment for volume) (15cc+10cc nacl pf+decadron 4mg) Blood Aspirated: No Pain Paresthesia on Injection Noted: No Resistance on Injection: Normal Image Stored and Saved: Yes Events: Uneventful and Well Tolerated
[2024-12-29] MEDS: SENNOSIDES-DOCUSATE SODIUM 1 EACH TAB PO SCH (20:33)
[2024-12-29] MEDS: ASPIRIN 81 MG PO SCH (20:33)
[2024-12-29] MEDS ORDERED: TEMAZEPAM 15 MG CAP PO PRN ×2 (21:00→22:00)
[2024-12-29 22:57] LABS: Glucose,Whole Blood 169 mg/dL (70-110)
[2024-12-29] MEDS: HYDROcodone/APAP 5-325MG 1 EACH TAB PO PRN (23:09)
[2024-12-29] MEDS: GLIMEPIRIDE 2 MG TAB PO SCH (23:10)
[2024-12-30 04:14] VITALS: TEMP 97.4
[2024-12-30 07:09] LABS: Glucose,Whole Blood 137 mg/dL (70-110)
[2024-12-30] MEDS: INSULIN LISPRO (HumaLOG) 100 UNIT/ML 10 mL VL SQ SCH (07:10)
--- NOTE | 2024-12-30 08:53 | P.DS ---
Providers Date of admission: 12/29/2024 Attending physician: Sergio Burr Consults: 12/29/24 08:44 Consult Physician Routine Consulting Provider: Mercedes Sutherland Consult Reason/Comments: post op medical management Do you want consulting provider notified?: Yes Primary care physician: Nimisha House [place] [facility] Course: The patient is a very pleasant 79-year-old female who was admitted yesterday fol lowing an uncomplicated total knee replacement. She received 2 doses of postoperative antibiotics. She was transitioned from IV to oral pain medication. She was seen on postoperative day #1 and was doing well. The dressing over her knee was intact with no drainage or strikethrough. Her thigh and calf are soft. Femoral nerve function was intact. She was able to actively plantarflex and dorsiflex her ankle and her toes. Internal medicine and physical therapy were consulted. She was tentatively cleared for discharge home pending evaluation by physical therapy. Patient Condition at Discharge: Good Plan - Discharge Summary Discharge Rx Participant: No New Discharge Prescriptions: New Aspirin 81 mg PO BID #60 tab Docusate [Colace] 100 mg PO BID #60 capsule HYDROcodone/APAP 5-325MG [Thendara 5-325] 1 - 2 tab PO Q6HR PRN #24 tab PRN Reason: Pain Omeprazole [PriLOSEC] 40 mg PO DAILY #30 cap Ondansetron [Zofran] 4 mg PO Q8HR PRN #16 tab PRN Reason: Nausea No Action Omeprazole [PriLOSEC] 20 mg PO QAM Lisinopril-Hctz 20-12.5 mg [Zestoretic 20-12.5] 1 tab PO BID Fish Oil/Fat No.8/Hrb Comb.137 [[place] 3-6-9 1,200 mg Softgel] 2,000 mg PO QAM Levothyroxine Sodium [Synthroid] 150 mcg PO QAM Nitroglycerin Sl Tabs [Nitrostat] 0.4 mg SUBLINGUAL Q5M PRN #25 tab PRN Reason: Chest Pain Glimepiride [Amaryl] 2 mg PO HS Metoprolol Tartrate [Lopressor] 50 mg PO BID Furosemide [Lasix] 20 mg PO QAM PRN PRN Reason: Edema Rosuvastatin Calcium 10 mg PO HS Potassium Citrate 99 mg PO HS FLUoxetine HCL [PROzac] 20 mg PO HS Ascorbic Acid [Vitamin C] 1,000 mg PO QAM Dabigatran Etexilate Mesylate [Dabigatran Etexilate] 150 mg PO BID Vits A,C,E/Lutein/Minerals [Ocuvite with Lutein Tablet] 1 tab PO DAILY Cranberry Conc/C/Bacill Coag [Cranberry Urinary 250-30-3.5MG] 1 tab PO QAM Empagliflozin [Jardiance] 25 mg PO QAM Isosorbide Mononitrate ER [Imdur] 30 mg PO QAM Aspirin 81 mg PO DAILY Discharge Medication List Fish Oil/Fat No.8/Hrb Comb.137 [[place] 3-6-9 1,200 mg Softgel] 2,000 mg PO QAM 02/01/14 [History] Lisinopril-Hctz 20-12.5 mg [Zestoretic 20-12.5] 1 tab PO BID 02/01/14 [History] Omeprazole [PriLOSEC] 20 mg PO QAM 02/01/14 [History] Levothyroxine Sodium [Synthroid] 150 mcg PO QAM 02/02/14 [History] Nitroglycerin Sl Tabs [Nitrostat] 0.4 mg SUBLINGUAL Q5M PRN #25 tab 02/03/14 [Rx] Glimepiride [Amaryl] 2 mg PO HS 06/04/20 [History] Metoprolol Tartrate [Lopressor] 50 mg PO BID 06/04/20 [History] Ascorbic Acid [Vitamin C] 1,000 mg PO QAM 06/18/23 [History] Aspirin 81 mg PO DAILY 06/18/23 [History] Cranberry Conc/C/Bacill Coag [Cranberry Urinary 250-30-3.5MG] 1 tab PO QAM 06/18/23 [History] Empagliflozin [Jardiance] 25 mg PO QAM 06/18/23 [History] FLUoxetine HCL [PROzac] 20 mg PO HS 06/18/23 [History] Furosemide [Lasix] 20 mg PO QAM PRN 06/18/23 [History] Isosorbide Mononitrate ER [Imdur] 30 mg PO QAM 06/18/23 [History] Potassium Citrate 99 mg PO HS 06/18/23 [History] Rosuvastatin Calcium 10 mg PO HS 06/18/23 [History] Vits A,C,E/Lutein/Minerals [Ocuvite with Lutein Tablet] 1 tab PO DAILY 06/18/23 [History] Dabigatran Etexilate Mesylate [Dabigatran Etexilate] 150 mg PO BID 12/25/24 [History] Aspirin 81 mg PO BID #60 tab 12/30/24 [Rx] Docusate [Colace] 100 mg PO BID #60 capsule 12/30/24 [Rx] HYDROcodone/APAP 5-325MG [Thendara 5-325] 1 - 2 tab PO Q6HR PRN #24 tab 12/30/24 [Rx] Omeprazole [PriLOSEC] 40 mg PO DAILY #30 cap 12/30/24 [Rx] Ondansetron [Zofran] 4 mg PO Q8HR PRN #16 tab 12/30/24 [Rx] Follow up Appointment(s)/Referral(s): Sergio Burr MD [Medical Doctor] - 2 Weeks Activity/Diet/Wound Care/Special Instructions: 1. Weight-bear as tolerated on your operative extremity unless instructed otherwise. Use a walker or other assistive device to ambulate. 2. Leave surgical dressing in place. If your dressing becomes saturated with blood, there is drainage, or the dressing becomes loose please contact the office. 3. It is okay to shower with your surgical dressing, but do not submerge in water (no hot tubs, bath's, swimming etc.) 4. Make sure to take her blood clot prevention medication as prescribed (aspirin, Eliquis, Xarelto, and Plavix are commonly prescribed medications for blood clot prevention) 5. While taking Thendara or Percocet for pain make sure you're taking a stool softener (Colace) and drink lots of water. 6. Keep all follow-up appointments as scheduled. You will usually be seen in 1-2 weeks following surgery. 7. Please contact the office with any questions or concerns [phone] Discharge Disposition: HOME WITH HOME HEALTH SERVICES
[2024-12-30 10:05] VITALS: BP 124/79; PULSE 79; RESP 18
[2024-12-30 10:36] LABS: Basophils # (A) 0.02 X 10*3/uL (0.00-0.10); Basophils % (A) 0.1 %; Eosinophils # (A) 0 X 10*3/uL (0.04-0.35); Eosinophils % (A) 0 %; HGB 11.9 g/dL (12.0-15.0); Lymphocytes # (A) 1.05 X 10*3/uL (0.90-5.00); Lymphocytes % (A) 6.4 %; MCHC 31.3 g/dL (32.0-37.0); MCV 92.7 FL (80.0-97.0); Mean Platelet Volume 11.4 FL (9.5-12.2); Monocytes % (A) 7.9 %; NRBC Per 100 WBC 0 X 10*3/uL (0.00-0.01); Neutrophils # (A) 13.87 X 10*3/uL (1.80-7.70); Neutrophils % (A) 84.9 %; Platelet Count 289 X 10*3/uL (140-440); RDW 12.9 % (11.5-14.5); WBC 16.36 X 10*3/uL (4.50-10.00)
== END 2024-12-30 10:34 | disposition home health service (06) ==
LOC: OR 05:34 → 4SSUR 08:52 → OR 12-30 10:34
PROVIDERS: ATTEND Orthopaedic Surgery
DX: M17.11 Unilateral primary osteoarthritis, right knee (principal); K21.9 Gastro-esophageal reflux disease without esophagitis; I48.91 Unspecified atrial fibrillation; I10 Essential (primary) hypertension; E11.9 Type 2 diabetes mellitus without complications; E78.5 Hyperlipidemia, unspecified; E07.9 Disorder of thyroid, unspecified; F41.9 Anxiety disorder, unspecified; Z87.891 Personal history of nicotine dependence; Z96.651 Presence of right artificial knee joint; Z86.73 Personal history of transient ischemic attack (TIA), and cerebral infarction without residual deficits; Z79.890 Hormone replacement therapy; Z79.84 Long term (current) use of oral hypoglycemic drugs; Z79.899 Other long term (current) drug therapy
CPT/HCPCS: 0055T; 27447; 64447; 64473; 85025

== ENCOUNTER → 2025-03-21 | Outpatient (CLI) | payer MEDICARE ==
--- NOTE | 2025-03-21 15:30 | CT ---
CT left knee, ALONSO protocol. CLINICAL INDICATION: Female, 79 years old with history of M25.562 PAIN IN LEFT KNEE, Knee pain COMPARISON: None TECHNIQUE: Multiple axial images are obtained through the lower extremities without use of IV contras t material. The exam was performed according to the ALONSO protocol FINDINGS: There is marked narrowing, moderate hypertrophic spurring and mild subchondral sclerosis in the media l compartment knee consistent with marked osteoarthritis. The lateral joint space is well There is n o significant narrowing or subchondral changes in the patellofemoral compartment. There is no acute f racture or dislocation. The hips are normal and symmetric bilaterally without fracture, dislocation or arthritic change. The ankles are normal and symmetrical without osteoarthritic change, fracture, dislocation or focal i ntraosseous abnormality. IMPRESSION: 1. Marked osteoarthritis of the medial compartment of the left knee. 2. No significant osteoarthritis of the patellofemoral or lateral compartment of the left knee. 3. No significant arthritis or abnormality of the hips or ankles. [facility], , 03/21/2025 3:28 PM
== END | disposition home or self-care (01) ==
LOC: RADCTMAIN 14:06
PROVIDERS: ATTEND Orthopaedic Surgery
DX: M17.12 Unilateral primary osteoarthritis, left knee (principal)